=== PATIENT | female | born 1975 | race African-American/Black ===

== ENCOUNTER 2024-10-30 00:07 | Day surgery (SDC) | payer OTHER, SELFPAY ==
[2024-07-11 13:14] VITALS: BMI 26.6
--- NOTE | 2024-08-01 10:54 | SUR.PREOP ---
Called patient in regards to procedure today. Patient arrival time was 1000. Patient did not answer the phone. Message left with patient.
--- OUTSIDE RECORDS SUMMARY | 2024-08-08 03:15 | XMS_ITS | Encounter Summary ---
Author Organization [facility] Address [address] [place] [address]. [place] [address] [place] [address] Care Team Providers Care Head Chef Name Role Phone None, Provider Primary Care Provider Jaiden ble Encounter Details Date Type Department Care Team (Latest Contact Info) Description 06/29/2021 Travel Social History Tobacco Use Types Packs/Day Years Used Date Smoking Tobacco: Never Assessed Comments Unknown Sex and Gender Information Value Date Recorded Sex Assigned at Not on file Legal Sex Female 8:14 AM CDT Gender Identity Not on file Sexual Orientation Not on file COVID-19 Exposure Response Date Recorded In the last month, have you been in contact with someone who was confirmed or suspected to have Coronavirus / COVID-19? No / Unsure 06/29/2021 2:18 PM STORE CONSULTANT documented as of this encounter Plan of Treatment Not on file documented as of this encounter Visit Diagnoses Not on filedocumented in this encounter Care Teams Head Chef Relationship Specialty Start Date End Date None, ProviderMD PCP - General 06/29/21 07/24/24 documented as of this encounter
--- OUTSIDE RECORDS SUMMARY | 2024-08-08 03:15 | XMS_ITS | Clinical Summary ---
Author Organization [facility] Address [address] [place] [address]. [place] [address] [place] [address] Care Team Providers Care Safety Patrol Officer Name Role Phone Bairon Brown MD Primary Care Provider [phone] Allergies No known active allergies Medications ondansetron (ZOFRAN-ODT) 4 MG disintegrating tablet Take 1 tablet (4 mg total) by mouth every 8 (eight) hours as needed for Nausea. 12 tablet Active Encounters Date Type Department Care Team Description 07/25/2024 5:40 PM KINDERGARTEN PREP TEACHER - 07/25/2024 10:09 PM KINDERGARTEN PREP TEACHER Emergency [facility] [place] [address] Terence Pimentel MD Flu Like Symptoms Discharge Disposition: Home or Self Care (Routine Discharge) 07/25/2024 Travel from Last 3 Months Family History Medical History Relation Comments Breast Cancer Sister Relation Status Comments Sister Social History Tobacco Use Types Packs/Day Years Used Date Smoking Tobacco: Never Smokeless Tobacco: Never Tobacco Cessation:Counseling Given: Not Answered Alcohol Use Standard Drinks/Week Comments Not Currently 0 (1 standard drink = 0.6 oz pur e alcohol) Comments No Sex and Gender Information Value Date Recorded Sex Assigned at Not on file Legal Sex Female 8:14 AM CDT Gender Identity Not on file Sexual Orientation Not on file Last Filed Vital Signs Vital Sign Reading Time Taken Comments Blood Pressure 136/80 07/25/2024 10:00 PM KINDERGARTEN PREP TEACHER Pulse 79 07/25/2024 10:00 PM KINDERGARTEN PREP TEACHER Temperature 36.8 ??C (98.3 ??F) 07/25/2024 5:37 PM CS T Respiratory Rate 16 07/25/2024 10:00 PM KINDERGARTEN PREP TEACHER Oxygen Saturation 99% 07/25/2024 10:00 PM KINDERGARTEN PREP TEACHER Inhaled Oxygen Concentration - - Weight 65.4 kg (144 lb 2.9 oz) 07/25/2024 5:37 P M KINDERGARTEN PREP TEACHER Height 152.4 cm (5') 07/25/2024 5:37 PM KINDERGARTEN PREP TEACHER Body Mass Index 28.16 07/25/2024 5:37 PM KINDERGARTEN PREP TEACHER Plan of Treatment Health Maintenance Due Date Last Done Comments Cervical Cancer Screening Pap Smear (Age 30 to 64) Every 3 Years 1973 Colorectal Cancer Screening Colonoscopy (10 Years) 1973 Annual Physical 1976 Hepatitis C 1991 DTaP, Tdap and Td Vaccines (1 - Tdap) 1992 Hepatitis B Vaccines (1 of 3 - 19+ 3-dose series) 1992 Cervical Cancer Screening Pap with HPV Testing (Age 30 to 64) Every 5 Years 2003 Cervical Cancer Screening with HPV 2003 Zoster Vaccines (1 of 2) 2023 Mammogram Screening 06/29/2023 06/29/2021, 12/25/2020, 08/13/2020, Additional history exists COVID-19 Vaccine (2023- season) 2024 03/14/2021, 02/15/2021 Influenza Adult (#1) 2024 Meningococcal Vaccine Aged Out No leonor edgardo eligible based on patient's age to complete this topic Pneumococcal Vaccine: Pediatrics (0 to 5 Years) and At-Risk Patients (6 to 64 Years) Aged Out No longer eligible based on patient's age to complete this topic RSV Immunizations Under 20 Months Aged Out No longer eligible based on patient's age to complete this topic Procedures Procedure Name Priority Date/Time Associated Diagnosis Comments CT ABD+PEL WO CON STAT 07/25/2024 8:1 2 PM KINDERGARTEN PREP TEACHER HC URINALYSIS AUTO W/O MICRO STAT 07/25/2024 6:15 PM KINDERGARTEN PREP TEACHER INFLUENZA A & B STAT 07/25/2024 5:57 PM KINDERGARTEN PREP TEACHER CORONAVIRUS (COVID 19) STAT 5:57 PM KINDERGARTEN PREP TEACHER COMPREHENSIVE METABOLIC PANEL STAT 07/25/2024 5:57 PM KINDERGARTEN PREP TEACHER CBC W/DIFF AUTOMATED STAT 07/25/2024 5:57 PM KINDERGARTEN PREP TEACHER MG DIAG W KRYSTINA BILAT DIGI Routine 06/29/2021 2:46 PM KINDERGARTEN PREP TEACHER Abnormal mammogram from Last 3 Months or Most Recently Relevant to Health Maintenance Results * CT ABD+PEL WO CON (07/25/2024 8:12 PM KINDERGARTEN PREP TEACHER) Anatomical Region Laterality Modality Abdomen Computed Tomogra phy 07/25/2024 8:49 PM KINDERGARTEN PREP TEACHER Impressions 07/25/2024 8:58 PM KINDERGARTEN PREP TEACHER IMPRESSION: Possible enteritis. Referred By: ?? Interpreted By: Homar Whaley MD, 07/25/2024 8:49 PM Narrative 07/25/2024 8:58 PM KINDERGARTEN PREP TEACHER [address] [address] EXAM: CT ABD+PEL WO CON DATE: 07/25/2024 COMPARISON: None INDICATION: Body aches and diarrhea TECHNIQUE: Noncontrast imaging A dose lowering technique was used for this procedure, which may include, but is not limited to, dose reduction technique, automated exposure control, iterative reconstruction, ALARA (As Low As Reasonably Achievable), or Image Gently techniques. FINDINGS: The lungs are clear. ??Left mastectomy. There is probably mild fatty infiltration of the liver. ??Normal noncontrast appearance of the spleen, adrenal glands, and pancreas. ??Mostly contracted gallbladder. No calcifications in the kidneys. ??Poorly visualized ureters with no evidence of obstruction. ??Probable phlebolith distally in the left side of the pelvis. ??Normal urinary bladder. There is a partially calcified fibroid associated with the uterine fundus. ??This is superiorly located in the anteverted uterus and measures about 3 cm. ??Tiny calcifications are present. ??No adnexal mass. ??Small amount fluid could be physiologic. Moderate stool volume. ??Normal appendix. ??Fecal material from the hepatic flexure distally is normal density. ??The more proximal aspects of the large bowel have lower density stool. ??This can be associated with diarrhea. ??Additionally, multiple small bowel segments contain fluid. ??They are normal diameter, but unless there has been a recent large fluid ingestion, possible enteritis. ?? Multiple normal size mesenteric lymph nodes are nonspecific findings. ??Stomach is moderately distended with mixed density material. Mild lumbar dextroscoliosis. Procedure Note Homar Whaley MD - 07/25/[address] [address] EXAM: CT ABD+PEL WO CON DATE: 07/25/2024 COMPARISON: None INDICATION: Body aches and diarrhea TECHNIQUE: Noncontrast imaging A dose lowering technique was used for this procedure, which may include,but is not limited to, dose reduction technique, automated exposurecontrol, iterative reconstruction, ALARA (As Low As ReasonablyAchievable), or Image Gently techniques. FINDINGS: The lungs are clear. Left mastectomy. There is probably mild fatty infiltration of the liver. Normalnoncontrast appearance of the spleen, adrenal glands, and pancreas.Mostly contracted gallbladder. No calcifications in the kidneys. Poorly visualized ureters with noevidence of obstruction. Probable phlebolith distally in the left side ofthe pelvis. Normal urinary bladder. There is a partially calcified fibroid associated with the uterine fundus.This is superiorly located in the anteverted uterus and measures about 3cm. Tiny calcifications are present. No adnexal mass. Small amountfluid could be physiologic. Moderate stool volume. Normal appendix. Fecal material from the hepaticflexure distally is normal density. The more proximal aspects of thelarge bowel have lower density stool. This can be associated withdiarrhea. Additionally, multiple small bowel segments contain fluid.They are normal diameter, but unless there has been a recent large fluidingestion, possible enteritis. Multiple normal size mesenteric lymph nodes are nonspecific findings.Stomach is moderately distended with mixed density material. Mild lumbar dextroscoliosis. IMPRESSION: Possible enteritis. Referred By: Interpreted By: Homar Whaley MD, 07/25/2024 8:49 PM Terence Pimentel MD CT Final Result * (ABNORMAL) URINALYSIS (07/25/2024 6:15 PM KINDERGARTEN PREP TEACHER) SPECIMEN TYPE URINE CLEAN CATCH 07/25/2024 6:15 PM KINDERGARTEN PREP TEACHER [facility] COLOR (U) YELLOW 07/25/2024 7:07 PM [facility] TRANSPARENCY CLEAR 07/25/2024 7:07 PM [facility] SPECIFIC GRAVITY (U) 1.031(H) 1.001 - 1.030 07/25/2024 7:07 PM [facility] U PH 5.5 5.0 - 9.0 07/25/2024 7:07 PM [facility] LEUKOCYTES (U) NEGATIVE NEGATIVE 07/25/2024 7:07 PM [facility] NITRITES NEGATIVE NEGATIVE 07/25/2024 7:07 PM [facility] PROTEIN RANDOM (U) 20 <30 MG/DL 07/25/2024 7:07 PM [facility] GLUCOSE (U) NORMAL NORMAL MG/DL 07/25/2024 7:07 PM [facility] KETONES MG/DL (U) 10(A) NEGATIVE MG/DL 07/25/2024 7:07 PM [facility] UROBILINOGEN NORMAL NORMAL MG/DL 07/25/2024 7:07 PM [facility] BILIRUBIN (U) NEGATIVE NEGATIVE MG/DL 07/25/2024 7:07 PM KINDERGARTEN PREP TEACHER [facility] BLOOD (U) 1+(A) NEGATIVE 07/25/2024 7:07 PM KINDERGARTEN PREP TEACHER [facility] MUCUS FEW /LPF 07/25/2024 7:07 PM KINDERGARTEN PREP TEACHER [facility] WBC/HPF 2 <6 /HPF 07/25/2024 7:07 PM KINDERGARTEN PREP TEACHER [facility] RBC/HPF 16(H) <6 /HPF 07/25/2024 7:07 PM KINDERGARTEN PREP TEACHER [facility] SQUAMOUS EPITHELIALS RARE /HPF 07/25/2024 7:07 PM KINDERGARTEN PREP TEACHER [facility] URINE SPECIMEN OBTAINED BY CLEAN CATCH PROCEDURE / Unknown 07/25/2024 6:15 PM KINDERGARTEN PREP TEACHER Terence Pimentel MD URINE ORDERABLES Final Result [facility] [address] [place] [address], [place] [phone] * CORONAVIRUS (COVID 19) (07/25/2024 5:57 PM KINDERGARTEN PREP TEACHER) CORONAVIRUS SARS COV 2 RNA NEGATIVE NEGATIVE 07/25/2024 6:43 PM KINDERGARTEN PREP TEACHER [facility] Comment: NEGATIVE RESULTS DO NOT RULE OUT COVID 19 AND SHOULD NOT BE USED THE SOLE BASIS FOR TREATMENT OR PATIENT MANAGEMENT DECISIONS, INCLUDING INFECTION CONTROL DECISIONS. NEGATIVE RESULTS SHOULD BE CONSIDERED IN THE CONTEXT OF A PATIENT'S RECENT EXPOSURES, HISTORY AND THE PRESENCE OF CLINICAL SIGNS AND SYMPTOMS CONSISTENT WITH COVID 19. THE ID NOW COVID-19 2.0 TEST HAS BEEN AUTHORIZED BY THE FDA UNDER EAU FOR USE BY AUTHORIZED LABORATORIES. PERFORMED BY NUCLEIC ACID AMPLIFICATION FOR MOLECULAR QUALITATIVE DETECTION OF SARS-COV-2. SPECIMEN TYPE NASAL 07/25/2024 5:53 PM KINDERGARTEN PREP TEACHER [facility] NASAL STRUCTURE / Unknown 07/25/2024 5:57 PM KINDERGARTEN PREP TEACHER Janet ROMEO MICROBIOLOGY - GENERAL ORDERAB LES Final Result [facility] [address] [place] [address], [place] [phone] * INFLUENZA A & B (07/25/2024 5:57 PM KINDERGARTEN PREP TEACHER) SPECIMEN TYPE SWAB 07/25/2024 6:17 PM KINDERGARTEN PREP TEACHER [facility] INFLUENZA A NEGATIVE NEGATIVE 07/25/2024 6:44 PM KINDERGARTEN PREP TEACHER [facility] INFLUENZA B NEGATIVE NEGATIVE 07/25/2024 6:44 PM KINDERGARTEN PREP TEACHER [facility] Comment: Interpretation: Negative for Influenza A and B. A negative result does not exclude influenza virus infection. If influenza is circulating in your community, a diagnosis of influenza should be considered based on a patient's clinical presentation and empiric antiviral treatment should be considered, if indicated. If more conclusive testing is needed for hospitalized inpatients, follow-up confirmatory testing with RT-PCR requires a separate order. NASAL STRUCTURE / Unknown 07/25/2024 5:57 PM KINDERGARTEN PREP TEACHER Janet ROMEO MICROBIOLOGY - GENERAL ORDERAB LES Final Result Performing Organization Address [facility]/ZIP Co de Phone Number [facility] [address] [place] [address], [place] [phone] * (ABNORMAL) COMPREHENSIVE METABOLIC PANEL (07/25/2024 5:57 PM KINDERGARTEN PREP TEACHER) GLUCOSE 99 70 - 99 MG/DL 07/25/2024 6:36 PM KINDERGARTEN PREP TEACHER [facility] BUN 11 7 - 18 MG/DL 07/25/2024 6:36 PM KINDERGARTEN PREP TEACHER [facility] CREATININE S/P/B 0.80 0.55 - 1.02 MG/DL 07/25/2024 6:36 PM [facility] SODIUM S/P/B 137 136 - 145 MMOL/L 07/25/2024 6:36 PM [facility] POTASSIUM S/P/B 3.5 3.5 - 5.1 MMOL/L 07/25/2024 6:36 PM [facility] CHLORIDE S/P/B 108 97 - 115 MMOL/L 07/25/2024 6:36 PM [facility] CO2 24.8 21 - 32 MMOL/L 07/25/2024 6:36 PM [facility] CALCIUM S/P/B 9.3 8.5 - 10.1 MG/DL 07/25/2024 6:36 PM [facility] BILIRUBIN TOTAL S/P/B 0.6 0.2 - 1.2 MG/DL 07/25/2024 6:36 PM [facility] Comment: THIS ASSAY IS NOT RECOMMENDED FOR PATIENTS UNDERGOING TREATMENT WITH ELTROMBOPAG DUE TO THE POTENTIAL FOR FALSELY ELEVATED RESULTS. TOTAL PROTEIN S/P/B 8.1 6.4 - 8.2 G/DL 07/25/2024 6:36 PM [facility] ALBUMIN S/P/B 3.7 3.4 - 5.0 G/DL 07/25/2024 6:36 PM [facility] AST 15 15 - 37 U/L 07/25/2024 6:36 PM [facility] ALT 23 14 - 55 U/L 07/25/2024 6:36 PM [facility] ALKALINE PHOSPHATASE S/P/B 107 50 - 136 U/L 07/25/2024 6:36 PM [facility] ANION GAP 4.2 2 - 10 MMOL/L 07/25/2024 6:36 PM [facility] BUN CREATININE RATIO 13.8 6 - 26 07/25/2024 6:36 PM [facility] A/G RATIO 0.8(L) 1.0 - 2.0 RATIO 07/25/2024 6:36 PM [facility] GFR ESTIMATE 89(L) >90 ML/MIN/1.7 3 M2 07/25/2024 6:36 PM [facility] Comment: NOTE: eGFR is not calculated for patients <18 years of age or gender unknown. This is an estimated GFR calculation using the new CKD EPI creatinine equation without race and so does not require a correction factor for race. This estimated GFR should not be used for calculating drug doses. 07/25/2024 5:57 PM KINDERGARTEN PREP TEACHER Janet ROMEO LABORATORY Final Result [facility] [address] [place] [address], [place] [phone] * (ABNORMAL) CBC W/DIFF AUTOMATED (07/25/2024 5:57 PM KINDERGARTEN PREP TEACHER) WBC 5.30 4.5 - 11.0 x10'3/uL 07/25/2024 6:27 PM [facility] RBC 5.86(H) 4.20 - 5.40 x10'6/uL 07/25/2024 6:27 PM [facility] HGB 12.7 12.0 - 16.0 G/DL 07/25/2024 6:27 PM [facility] HCT 41.6 38.0 - 48.0 % 07/25/2024 6:27 PM [facility] MCV 71.0(L) 81.0 - 99.0 FL 07/25/2024 6:27 PM [facility] MCH 21.7(L) 27.0 - 31.0 PG 07/25/2024 6:27 PM [facility] MCHC 30.5(L) 32.0 - 36.0 G/DL 07/25/2024 6:27 PM [facility] RDW 14.5 11.5 - 14.5 % 07/25/2024 6:27 PM [facility] PLT 307 130 - 400 x10'3/uL 07/25/2024 6:27 PM [facility] MPV 9.0(L) 9.3 - 12.2 FL 07/25/2024 6:27 PM [facility] DIFFERENTIAL TYPE AUTOMATED DIFFERENTIAL 07/25/2024 6:41 PM [facility] NEUTROPHILS % 79.0 % 07/25/2024 6:41 PM [facility] LYMPHOCYTES % 14.0 % 07/25/2024 6:41 PM [facility] MONOCYTES % 6.4 % 07/25/2024 6:41 PM [facility] EOSINOPHILS 0.2 % 07/25/2024 6:41 PM [facility] BASOPHILS 0.2 % 07/25/2024 6:41 PM [facility] IMMATURE GRANS % 0.2 % 07/25/19 6:41 PM [facility] ABS. NEUTROPHILS 4.19 1.80 - 7.70 x10'3/uL 07/25/2024 6:41 PM [facility] ABS. LYMPHOCYTES 0.74(L) 1.00 - 4.80 x10'3/uL 07/25/2024 6:41 PM [facility] ABS. MONOCYTES 0.34 0.24 - 0.86 x10'3/uL 07/25/2024 6:41 PM KINDERGARTEN PREP TEACHER [facility] ABS. EOSINOPHILS 0.01(L) 0.04 - 0.36 x10'3/uL 07/25/2024 6:41 PM KINDERGARTEN PREP TEACHER [facility] ABS. BASOPHILS 0.01 0.01 - 0.08 x10'3/uL 07/25/2024 6:41 PM KINDERGARTEN PREP TEACHER [facility] ABS. IMMATURE GRANULOCYTES 0.01 0.00 - 0.49 x10'3/uL 07/25/2024 6:41 PM KINDERGARTEN PREP TEACHER [facility] RBC MORPHOLOGY SLIDE REVIEWED 2024 6:41 PM KINDERGARTEN PREP TEACHER [facility] HYPOCHROMASIA 1+ 07/25/2024 6:41 PM KINDERGARTEN PREP TEACHER [facility] MICRO 1+ 07/25/2024 6:41 PM [facility] PLT EST. ADEQUATE 07/25/2024 6:41 PM [facility] 07/25/2024 5:57 PM KINDERGARTEN PREP TEACHER Janet ROMEO LABORATORY Final Result [facility] [address] [place] [address], [place] [phone] * MG DIAG W KRYSTINA BILAT DIGI (06/29/2021 2:46 PM KINDERGARTEN PREP TEACHER) Anatomical Region Laterality Modality Breast Bilateral Mammography 06/29/2021 2:54 PM KINDERGARTEN PREP TEACHER Impressions 06/29/2021 2:58 PM KINDERGARTEN PREP TEACHER ===== IMPRESSION: ===== 1. ??Evidence of prior biopsy with no findings in either breast to suggest malignancy Assessment: ACR BI-RADS 2 - BENIGN FINDING(S) Recommendation: 1:Routine Screening Bilateral Comments: Continued annual bilateral screening mammography recommended. Additional bilateral 6 month follow-ups of the breasts by MRI recommended previously. Ordered By: ESTUARDO E LOETHEN Interpreted By: Terence Orellana MD, 06/29/2021 2:54 PM Narrative 06/29/2021 2:58 PM KINDERGARTEN PREP TEACHER Examination: Digital bilateral diagnostic mammogram with 3-D tomography Exam Date/Time: 06/29/2021 2:31 PM Reason For Exam: ??F/U ? 3 month follow-up for benign biopsy in the right breast. No personal history of breast cancer. Breast cancer in a sister at age 48. No current complaints. Comparison: Mammograms from 12/25/2020 08/13/2020 01/16/2020 01/16/2019 Technique: Digital diagnostic mammography of both breasts was performed in addition to 3-D Tomosynthesis technique. This study was read with the assistance of a computer-aided detection system. Tissue density: The breast tissue is heterogeneously dense, which may obscure small masses. Findings: ??Area of biopsy in the medial right breast does not have a clip as noted on prior post biopsy mammogram. Additional prior biopsy clip is seen in the right breast in stable position from prior studies. Interval resolution of biopsy changes in the medial right breast. Overall parenchymal pattern of bilateral breast otherwise stable from the prior studies. Benign axillary lymph nodes. No new focal asymmetry, dominant mass lesion, area of skin thickening, or cluster of suspicious appearing calcifications in either breast to suggest malignancy. Estuardo Hernandez MD MAMMO Final Result from Last 3 Months or Most Recently Relevant to Health Maintenance [place] [address] [address] Care Teams Safety Patrol Officer Relationship Specialty Start Date End Date Bairon Brown MD [facility] [address] [facility] [address] [place] [phone] PCP - General UNKNOWN PHYSICIAN SPECIALTY 07/25/24
--- OUTSIDE RECORDS SUMMARY | 2024-08-08 03:15 | XMS_ITS | Encounter Summary ---
Author Organization [facility] Address [address] [place] [address]. [place] [address] [place] [address] Care Team Providers Care Staff Counsel Name Role Phone Abi Baptiste MD Primary Care Provider Unavail able Encounter Details Date Type Department Care Team (Latest Contact Info) Description 12/25/2020 12:48 PM CDT - 12/25/2020 11:59 PM CDT Hospital Encounter [facility] Mammography [address] [place] [address] Omaira Vilchis MD [address] [place] [address] [phone] Discharge Disposition: Home or Self Care (Routine Discharge) Social History Tobacco Use Types Packs/Day Years [...] have Coronavirus / COVID-19? No / Unsure 12/25/2020 12:47 PM CDT documented as of this encounter Plan of Treatment Not on file documented as of this encounter Procedures Procedure Name Priority Date/Time Associated Diagnosis Comments MG DIAGNOSTIC RT DIGI Routine 12/25/2020 3:01 PM CDT Breast mass, right PATHOLOGY Routine 12/25/2020 12:00 AM CDT Breast mass documented in this encounter Results * Pathology (12/25/2020 12:00 AM CDT) PATHOLOGY ?[facility] ? [address] ? [place], [place] ??[address] ? [id number] ? Department of Pathology ? Pathology Report ? SURGICAL FINAL REPORT Patient Name: AILEEN FROST ? : 1975 (Age: 45) ?Location: [facility] Gender: F ?Collected Date: 12/25/2020 Med Rec #: [id number] ?Date Received: 12/25/2020 Date Reported: 12/26/2020 Provider: OMAIRA VILCHIS MD ?ABI BAPTISTE MD Specimen(s) Right breast MRI biopsy buckle clip 1442 hrs Final Pathologic Diagnosis BREAST, RIGHT, MRI-GUIDED BIOPSY: ? MICROCYSTS WITH APOCRINE METAPLASIA ? STROMAL FIBROSIS ? FOCAL USUAL DUCTAL HYPERPLASIA ? NO ATYPICAL HYPERPLASIA OR MALIGNANCY Electronically Signed Out ? MARIANO THOMPSON MD Pathologist SMO:pb Microscopic Description: Microscopic examination substantiates the above diagnosis. Clinical History Gross hematuria Gross Description Received is a single formalin-filled container labeled with the patient's name (Aileen Frost), date of , 1975, collected 12/25/2020 at 1442, and additionally labeled right breast MRI biopsy buckle clip. ??The specimen consists of multiple previously fragmented white-yellow probable core needle biopsies admixed with hemorrhagic tissue, with aggregate dimensions of 3.0 x 2.0 x 0.6 cm. ??The specimen is submitted in toto in cassettes 1-5. :pb Billing Fee Code(s): 73892 [facility] 12/25/2020 12/25/2020 3:3 4 PM CDT Comment:RIGHT BREAST MRI BIO PSY BUCKLE CLIP 1442 HRS us Omaira Vilchis MD PATHOLOGY/CYTOLOGY ORDERABL ES Final Result [facility] [address] [place] [address], [place] [phone] documented in this encounter Visit Diagnoses Diagnosis Breast mass- Primary Lump or mass in breast documented in this encounter Administered Medications Inactive Administered Medications - up to 3 most recent administrations Medication Order MAR Action Action Date Dose Rate Site lidocaine-EPINEPHrine 1 %[id number] injection 20 mL 20 mL, Intradermal, Once, 1 dose, On [facility] 12/25/20 at 1530 Given by Other 12/25/2020 1:55 PM CDT 20 mLs Right Breast sodium chloride 0.9 % irrigation 250 mL 250 mL, Irrigation, Continuous, Starting on [place] 12/25/20 at 1530, Until 12/27/20 at 0250 New Bag 12/25/2020 1:55 PM CDT 250 mLs Right Breast documented in this encounter Care Teams Staff Counsel Relationship Specialty Start Date End Date Abi Baptiste MD PCP - General OBGYN 06/22/19 02/05/21 documented as of this encounter
--- OUTSIDE RECORDS SUMMARY | 2024-08-08 03:15 | XMS_ITS | Encounter Summary ---
Author Organization [facility] Address [address] [place] [address]. [place] [address] [place] [address] Care Team Providers Care Sales Solutions Representative Name Role Phone Natalie Starks MD Primary Care Provider Unavail able Reason for Referral * Imaging (Routine) - Closed Specialty Diagnoses / Procedures Referred By Patricia oliver Referred To Contact RADIOLOGY Diagnoses Abnormal mammogram Procedures US BREAST RT BIRAD [facility] [place] [address] Phone: tel: Referral ID Status Reason Start Date Expiration Date Visits Re quested Visits Authorized [id number] Closed 07/16/2019 08/14/2020 1 1 Encounter Details Date Type Department Care Team (Latest Contact Info) Description 01/16/2020 9:19 AM CDT - 01/16/2020 11:59 PM CDT Hospital Encounter [facility] Mammography [place], [place] [id number] Natalie Starks MD Discharge Disposition: Home or Self Care (Routine [...] have Coronavirus / COVID-19? No / Unsure 01/16/2020 9:17 AM CDT documented as of this encounter Plan of Treatment Not on file documented as of this encounter Procedures Procedure Name Priority Date/Time Associated Diagnosis Comments US BREAST RT BIRAD LTD Routine 01/16/2020 11:03 AM CDT Abnormal mammogram MG EDIS DAMON DIGI Routine 01/16/2020 10:08 AM CDT Abnormal mammogram documented in this encounter Results * US BREAST RT Territorial PrescienceAD LTD (01/16/2020 11:03 AM CDT) Anatomical Region Laterality Modality Breast Right Ultrasound 01/16/2020 11:2 9 AM CDT Impressions 01/16/2020 11:32 AM CDT =====IMPRESSION:===== Multiloculated cystic lesion of the right breast seen on ultrasound only. Subtle increase in mural nodule is suspected. ASSESSMENT: ACR BI-RADS CATEGORY 4 - SUSPICIOUS FINDING(S). ? SUBCATEGORY 4A - LOW SUSPICION FOR MALIGNANCY ? (between 3% to 10% likelihood) RECOMMENDATION: 1: Surgical consultation ??right COMMENTS: ? Narrative 01/16/2020 11:32 AM CDT EXAMINATION: Digital bilateral diagnostic mammogram with 3-D tomography and right breast ultrasound [id number] EXAM DATE/TIME: 01/16/2020 9:47 AM REASON FOR EXAM: ??Abnormal mammogram ? COMPARISON: 01/16/2019 TECHNIQUE: Digital diagnostic mammography of both breasts was performed in addition to 3-D Tomosynthesis technique. This study was read with the assistance of a computer-aided detection system. Right breast ultrasound also performed. TISSUE DENSITY: The breast tissue is extremely dense. FINDINGS: The dense tissue may obscure some lesions mammographically. Mammogram shows no suspicious mass or suspicious cluster microcalcifications seen. Correlation with free hand ultrasound shows previous finding is again identified. This is in the right breast and located at the 12:00 position, 4 cm from the nipple. This is multilobulated. This measures 0.57 x 0.93 x 0.55 cm. This is predominantly cystic although some mural thickening is seen. Lobulated thickened septa is noted. This may be slightly increased in prominence from prior exam. Natalie Starks MD ULTRASOUND Final Result documented in this encounter Visit Diagnoses Diagnosis Abnormal mammogram Abnormal mammogram, unspecified documented in this encounter Care Teams Sales Solutions Representative Relationship Specialty Start Date End Date Natalie Starks MD PCP - General OBGYN 06/22/19 02/05/21 documented as of this encounter
--- OUTSIDE RECORDS SUMMARY | 2024-08-08 03:15 | XMS_ITS | Encounter Summary ---
Author Organization [facility] Address [address] [place] [address]. [place] [address] [place] [address] Care Team Providers Care Technical Lead Name Role Phone Natalie Starks MD Primary Care Provider Unavail able Reason for Referral * Imaging (Routine) - Closed Specialty Diagnoses / Procedures Referred By Patricia oliver Referred To Contact RADIOLOGY Diagnoses Breast mass, right Procedures MRI BREAST CORE BX RT BIRAD MRI BREAST TRAV WWO CON Omaira Garcia MD [address] [place] [address] Phone: tel: fax: Referral ID Status Reason Start Date Expiration Date Visits Re quested Visits Authorized [id number] Closed 11/18/2020 12/18/2021 1 1 Reason for Visit * Imaging (Routine) - Closed Specialty Diagnoses / Procedures Referred By Patricia oliver Referred To Contact RADIOLOGY Diagnoses Breast mass, right Procedures MRI BREAST CORE BX RT BIRAD MRI BREAST TRAV WWO CON Omaira Garcia MD [address] [place] [id number] Phone: tel: fax: Referral ID Status Reason Start Date Expiration Date Visits Re quested Visits Authorized [id number] Closed 11/18/2020 12/18/2021 1 1 Encounter Details Date Type Department Care Team (Latest Contact Info) Description 12/25/2020 12:48 PM CDT - 12/25/2020 11:59 PM CDT Hospital Encounter [facility] MRI [address] [place] [address] Omaira Vilchis MD [address] [place] [phone] Discharge Disposition: Home or Self Care (Routine [...] Procedure Name Priority Date/Time Associated Diagnosis Comments MRI BREAST CORE BX RT BIRAD Routine 12/25/2020 2:56 PM CDT Breast mass, right documented in this encounter Results * MRI BREAST CORE BX RT BIRAD (12/25/2020 2:56 PM CDT) Anatomical Region Laterality Modality Breast Right Magnetic Resonan ce RIGHT BREAST STRUCTURE / Unknown 12/25/2020 4:27 PM CDT Addenda Addendum by Jensen Colon MD on 12/26/2020 4:46 PM CDT Addendum: Pathology results: Specimen(s) Right breast MRI biopsy Final Pathologic Diagnosis BREAST, RIGHT, MRI-GUIDED BIOPSY: ? ? ?MICROCYSTS WITH APOCRINE METAPLASIA ? ? ?STROMAL FIBROSIS ? ? ?FOCAL USUAL DUCTAL HYPERPLASIA ? ? ?NO ATYPICAL HYPERPLASIA OR MALIGNANCY Pathology results are concordant. ASSESSMENT: BI-RADS Category 2. Benign biopsy findings. Recommendation: 6 month follow-up breast MRI with contrast. Referred By: OMAIRA VILCHIS Interpreted By: Jensen Colon MD, 12/26/2020 4:36 PM Impressions 12/25/2020 4:49 PM CDT IMPRESSION: MRI guided biopsy of the focus of enhancement in the medial right breast. Recommendation: Recommendation pending pathology results. 1 Assessment: Procedural MRI. Assessment pending. Referred By: OMAIRA VILCHIS Interpreted By: Jensen Colon MD, 12/25/2020 4:27 PM Narrative 12/25/2020 4:49 PM CDT Examination: MRI breast right with with contrast and MRI guided biopsy. Clinical history: Focus of suspicious enhancement in the medial right breast. (MRI November 04, 2020) Comparison: MRI November 04, 2020 MRI technique: ??3-D fat-suppressed axial and sagittal T1 images. With subsequent intravenous injection of 0.1 mmol/kilogram gadolinium contrast, the axial T1 gradient-echo fat-suppressed sequenceThe precontrast axial T1 sequence was then electronically subtracted from the post contrast axial T1 sequences in order to improve background suppression. Procedure: My hands were washed prior to the procedure. After the risks, benefits and alternatives of the procedure were discussed with the patient the patient agreed. The patient was subsequently positioned in the breast MRI coil and advanced into the MRI scanner. Postcontrast sequences of the breast were performed. The prior area of enhancement within the medial mid right breast was reidentified. A timeout was performed. Subsequently the skin was cleansed with iodine swabs x3. Approximately 3 mL of lidocaine 1% were utilized for local anesthetic. Deeper administration of 3 mL lidocaine with 1:100,000 epinephrine were utilized for deeper anesthesia and hemostasis. The small neck was made and the patient's skin. The introducer and trocar needle was then advanced into the breast. An additional scan was performed. The obturator was noted to be inferior to the location of the focus of enhancement. Subsequent repositioning was performed. This area was cleansed with iodine swabs x3. 3 mL of lidocaine 1% were utilized for local anesthetic. Deeper anesthesia with 3 mL lidocaine with epinephrine was administered. A deepak was made and the patient's skin. The introducer with trocar needle was then advanced into the breast. Repeat scan was performed. Adequate positioning of the obturator was identified. Subsequently the 9 gauge biopsy needle was advanced after the obturator was withdrawn. 9 core biopsies in the cephalad region were performed along with 6 core biopsies about the clock face at even intervals. Postprocedure scan was performed. Hematoma was identified. Subsequently a clip was placed. There is postprocedural bleeding the occurred. Compression was held for approximately 5 minutes. Patient was sent to mammography for mammographic verification of clip placement. Clip was not identified on the mammogram. This may been due to the postprocedural bleeding. Overall the patient tolerated the procedure well. Procedure Note Jensen Colon MD - 12/25/2020 Examination: MRI breast right with with contrast and MRI guided biopsy. Clinical history: Focus of suspicious enhancement in the medial rightbreast. (MRI November 04, 2020) Comparison: MRI November 04, 2020 MRI technique: 3-D fat-suppressed axial and sagittal T1 images. Withsubsequent intravenous injection of 0.1 mmol/kilogram gadolinium contrast,the axial T1 gradient-echo fat-suppressed sequenceThe precontrast axial [id number] was then electronically subtracted from the post contrast axialT1 sequences in order to improve background suppression. Procedure: My hands were washed prior to the procedure. After the risks, benefits and alternatives of the procedure were discussedwith the patient the patient agreed. The patient was subsequentlypositioned in the breast MRI coil and advanced into the MRI scanner.Postcontrast sequences of the breast were performed. The prior area ofenhancement within the medial mid right breast was reidentified. A timeoutwas performed. Subsequently the skin was cleansed with iodine swabs x3. Approximately 3mL of lidocaine 1% were utilized for local anesthetic. Deeperadministration of 3 mL lidocaine with 1:100,000 epinephrine were utilizedfor deeper anesthesia and hemostasis. The small neck was made and the patient's skin. The introducer and trocarneedle was then advanced into the breast. An additional scan wasperformed. The obturator was noted to be inferior to the location of thefocus of enhancement. Subsequent repositioning was performed. This areawas cleansed with iodine swabs x3. 3 mL of lidocaine 1% were utilized forlocal anesthetic. Deeper anesthesia with 3 mL lidocaine with epinephrinewas administered. A deepak was made and the patient's skin. The introducerwith trocar needle was then advanced into the breast. Repeat scan wasperformed. Adequate positioning of the obturator was identified.Subsequently the 9 gauge biopsy needle was advanced after the obturatorwas withdrawn. 9 core biopsies in the cephalad region were performed alongwith 6 core biopsies about the clock face at even intervals. Postprocedure scan was performed. Hematoma was identified. Subsequently a clip was placed. There is postprocedural bleeding the occurred. Compression was held forapproximately 5 minutes. Patient was sent to mammography for mammographic verification of clipplacement. Clip was not identified on the mammogram. This may been due to thepostprocedural bleeding. Overall the patient tolerated the procedure well. IMPRESSION: MRI guided biopsy of the focus of enhancement in the medial rightbreast. Recommendation: Recommendation pending pathology results. 1 Assessment: Procedural MRI. Assessment pending. Referred By: OMAIRA VILCHIS Interpreted By: Jensen Colon MD, 12/25/2020 4:27 PM us Omaira Vilchis MD MRI Edited Resu lt - Final documented in this encounter Visit Diagnoses Diagnosis Breast mass, right Lump or mass in breast documented in this encounter Administered Medications Inactive Administered Medications - up to 3 most recent administrations Medication Order MAR Action Action Date Dose Rate Site gadoterate meglumine (DOTAREM) 7.5 MMOL/15ML injection 12 mL 12 mL, Intravenous, IMG once as needed, Contrast, 1 dose, Starting on Alma 12/25/20 at 1506, Until Al[place] 12/25/20 at 1506 Given 12/25/2020 3:06 PM CDT 12 mLs documented in this encounter Care Teams Technical Lead Relationship Specialty Start Date End Date Natalie Starks MD PCP - General OBGYN 06/22/19 02/05/21 documented as of this encounter
--- OUTSIDE RECORDS SUMMARY | 2024-08-08 03:15 | XMS_ITS | Encounter Summary ---
Author Organization [facility] Address [address] [place] [address]. [place] [address] [place] [address] Care Team Providers Care Veterinary Microbiologist Name Role Phone Natalie Starks MD Primary Care Provider Unavail able Encounter Details Date Type Department Care Team (Latest Contact Info) Description 08/13/2020 Travel Social History Tobacco Use Types Packs/Day [...] have Coronavirus / COVID-19? No / Unsure 08/13/2020 1:45 PM COUNTER INTELLIGENCE documented as of this encounter Plan of Treatment Not on file documented as of this encounter Visit Diagnoses Not on filedocumented in this encounter Care Teams Veterinary Microbiologist Relationship Specialty Start Date End Date Natalie Starks MD PCP - General OBGYN 06/22/19 02/05/21 documented as of this encounter
--- OUTSIDE RECORDS SUMMARY | 2024-08-08 03:15 | XMS_ITS | Encounter Summary ---
Author Organization [facility] Address [address] [place] [address]. [place] [address] [place] [address] Care Team Providers Care Sewing Machine Assembler Name Role Phone None, Provider Primary Care Provider Jaiden lehman Encounter Details Date Type Department Care Team (Latest Contact Info) Description 06/29/2021 2:26 PM FENCE MANUFACTURE SUPERVISOR - 06/29/2021 11:59 PM FENCE MANUFACTURE SUPERVISOR Hospital Encounter [facility] Mammography [address] [place], [place] [address] Estuardo Conti MD [facility] [address] [place] [phone] Discharge Disposition: Home or Self Care (Routine [...] COVID-19? No / Unsure 06/29/2021 2:18 PM FENCE MANUFACTURE SUPERVISOR documented as of this encounter Plan of Treatment Not on file documented as of this encounter Procedures Procedure Name Priority Date/Time Associated Diagnosis Comments MG DIAG W KRYSTINA BILAT DIGI Routine 06/29/2021 2:46 PM FENCE MANUFACTURE SUPERVISOR Abnormal mammogram documented in this encounter Results * MG DIAG W KRYSTINA BILAT DIGI (06/29/2021 2:46 PM FENCE MANUFACTURE SUPERVISOR) Anatomical Region Laterality Modality Breast Bilateral Mammography 06/29/2021 2:54 PM FENCE MANUFACTURE SUPERVISOR Impressions 06/29/2021 2:58 PM FENCE MANUFACTURE SUPERVISOR ===== IMPRESSION: ===== 1. ??Evidence of prior biopsy with no findings in either breast to suggest malignancy Assessment: ACR BI-RADS 2 - BENIGN FINDING(S) Recommendation: 1:Routine Screening Bilateral Comments: Continued annual bilateral screening mammography recommended. Additional bilateral 6 month follow-ups of the breasts by MRI recommended previously. Ordered By: ESTUARDO CONTI Interpreted By: Terence Orellana MD, 06/29/2021 2:54 PM Narrative 06/29/2021 2:58 PM FENCE MANUFACTURE SUPERVISOR Examination: Digital bilateral diagnostic mammogram with 3-D [...] calcifications in either breast to suggest malignancy. us Estuardo Conti MD MAMMO Final Result documented in this encounter Visit Diagnoses Not on filedocumented in this encounter Care Teams Sewing Machine Assembler Relationship Specialty Start Date End Date None, Provider, PCP - General 06/29/21 07/24/24 documented as of this encounter
--- OUTSIDE RECORDS SUMMARY | 2024-08-08 03:15 | XMS_ITS | Encounter Summary ---
Author Organization [facility] Address [address] [place] [address]. [place] [address] [place] [address] Care Team Providers Care Echo Tech Name Role Phone Natalie Starks MD Primary Care Provider Unavail able Encounter Details Date Type Department Care Team (Latest Contact Info) Description 01/16/2020 Travel Social History Tobacco Use Types Packs/Day [...] on filedocumented in this encounter Care Teams Echo Tech Relationship Specialty Start Date End Date Natalie Starks MD PCP - General OBGYN 06/22/19 02/05/21 documented as of this encounter
--- OUTSIDE RECORDS SUMMARY | 2024-08-08 03:15 | XMS_ITS | Encounter Summary ---
Author Organization [facility] Address [address] [place] [address]. [place] [address] [place] [address] Care Team Providers Care Steamship Agent Name Role Phone Natalie Starks MD Primary Care Provider Unavail able Encounter Details Date Type Department Care Team (Latest Contact Info) Description 03/19/2020 Travel Social History Tobacco Use Types Packs/Day [...] have Coronavirus / COVID-19? No / Unsure 03/19/2020 8:31 AM CDT documented as of this encounter Plan of Treatment Not on file documented as of this encounter Visit Diagnoses Not on filedocumented in this encounter Care Teams Steamship Agent Relationship Specialty Start Date End Date Natalie Starks MD PCP - General OBGYN 06/22/19 02/05/21 documented as of this encounter
--- OUTSIDE RECORDS SUMMARY | 2024-08-08 03:15 | XMS_ITS | Encounter Summary ---
Author Organization [facility] Address [address] [place] [address]. [place] [address] [place] [address] Care Team Providers Care Wordpress Developer Name Role Phone Natalie Starks MD Primary Care Provider Unavail able Encounter Details Date Type Department Care Team (Latest Contact Info) Description 12/25/2020 Travel Social History Tobacco Use Types Packs/Day [...] on filedocumented in this encounter Care Teams Wordpress Developer Relationship Specialty Start Date End Date Natalie Starks MD PCP - General OBGYN 06/22/19 02/05/21 documented as of this encounter
--- OUTSIDE RECORDS SUMMARY | 2024-08-08 03:15 | XMS_ITS | Encounter Summary ---
Author Organization [facility] Address [address] [place] [address]. [place] [address] [place] [address] Care Team Providers Care Shaker Screen Operator Name Role Phone Natalie Starks MD Primary Care Provider Unavail able Encounter Details Date Type Department Care Team (Latest Contact Info) Description 01/24/2020 Travel Social History Tobacco Use Types Packs/Day [...] have Coronavirus / COVID-19? No / Unsure 01/24/2020 1:13 PM CDT documented as of this encounter Plan of Treatment Not on file documented as of this encounter Visit Diagnoses Not on filedocumented in this encounter Care Teams Shaker Screen Operator Relationship Specialty Start Date End Date Natalie Starks MD PCP - General OBGYN 06/22/19 02/05/21 documented as of this encounter
--- OUTSIDE RECORDS SUMMARY | 2024-08-08 03:15 | XMS_ITS | Encounter Summary ---
Author Organization [facility] Address [address] [place] [address]. [place] [address] [place] [address] Care Team Providers Care Umbrella Tipper Hand Name Role Phone Natalie Starks MD Primary Care Provider Unavail able Reason for Referral * Imaging (Routine) - Closed Specialty Diagnoses / Procedures Referred By Contac t Referred To Contact RADIOLOGY Diagnoses Breast mass, right Procedures US GD BREAST BX RT Omaira Garcia MD [address] [place] [address] Phone: tel: fax: [place] [address] Phone: tel: Referral ID Status Reason Start Date Expiration Date Visits Re quested Visits Authorized [id number] Closed 01/23/2020 02/21/2021 1 1 Encounter Details Date Type Department Care Team (Latest Contact Info) Description 01/24/2020 1:14 PM CDT - 01/24/2020 11:59 PM [place] [address] Omaira Vilchis MD [address] [place] [address] Discharge Disposition: Home or Self Care (Routine [...] PM CDT documented as of this encounter H&P Notes * Omaira Vilchis MD - 01/24/2020 12:00 AM CDT CHIEF COMPLAINT: Right breast mass. HISTORY OF PRESENT ILLNESS: This is a 44-year-old female with a palpable mass of the right breastat the 12 o'clock position for over 1 year. She does not believe that it has changed. Her sister was diagnosed with breast cancer within the last year and she is very nervous about this. Her imaging demonstrates a subcentimeter lesion in this area, although I am not certain that the lesion seen on ultrasound is responsible for what she is feeling. PAST MEDICAL HISTORY: No chronic medical diseases. MEDICATIONS: Iron, Multivitamin, and Potassium. ALLERGIES: NONE. HORMONAL HISTORY: Her estimated lifetime risk is calculated at 26.4%. She has pertinent family history for her sister being diagnosed with breast cancer at the age of 47. The patient herself does notand has not used any hormone therapy. She underwent menarche at age 11 or 12. She was aged 20 at her first and has 3 children. PHYSICAL EXAMINATION: Well-appearing female in no distress, alert, and oriented. No cervical, supraclavicular, or axillary adenopathy. Left breast is within normal limits. Right breast demonstrates an ill-defined area of firmness at the 12 o'clock position, approximately 4 cm from the nipple. Thereis no nipple discharge. There is no nipple inversion. IMAGING: Bilateral mammogram demonstrates extremely dense breasts bilaterally. Right breast ultrasound at the 12 o'clock position 4 cm from the nipple demonstrates a multilobulated 0.93 cm complex cystic mass, BI-RADS 4A. ASSESSMENT: A 44-year-old female with an elevated lifetime risk over 20% with a complex cystic lesion seen on her ultrasound. I am not assured that this represents what she herself is feeling. I haverecommended a bilateral breast MRI as well as genetic testing and she is going to think about both of those things and whether or not she wants to proceed with that. We did discuss proceeding with needle biopsy of the identified lesion on the ultrasound and we discussed the risks of bleeding, infection, scarring, insufficient tissue sampling, need for additional biopsy or surgery and she wished to proceed. PLAN: Ultrasound-guided needle biopsy of right breast mass 12 o'clock. #[id number] /[id number] documented in this encounter OR Notes * Op Note - Omaira Vilchis MD - 01/24/2020 12:00 AM CDT PREOPERATIVE DIAGNOSIS: Right breast mass. POSTOPERATIVE DIAGNOSIS: Right breast mass. PROCEDURE PERFORMED: Ultrasound-guided mammotome biopsy right breast 12 o'clock position 4 cm from the nipple. SURGEON: Omaira Vilchis MD ANESTHESIA: Local. COMPLICATIONS: None. DESCRIPTION OF PROCEDURE: Patient was brought to the ultrasound suite and had an ultrasound of the 12 o'clock sector of the right breast was performed. The 1 cm lesion was identified. It appeared as a complex cystic mass. The breast was prepped, 1% Lidocaine was injected. A small deepak was made in the skin. The mammotome probe was introduced under direct ultrasound guidance into the lesion, which dissipated upon entry of the needle. Multiple vacuum-assisted biopsies were taken. The tissue was sent to pathology and X marking clip was placed at the biopsy site. She tolerated the procedure well. No apparent complications. #[id number] /[id number] documented in this encounter Plan of Treatment Not on file documented as of this encounter Procedures Procedure Name Priority Date/Time Associated Diagnosis Comments US GD BREAST BX RT BIRAD Routine 01/24/2020 2:18 PM CDT Breast mass, right MG DIAGNOSTIC RT DIGI Routine 01/24/2020 2:17 PM CDT Breast mass, right PATHOLOGY Routine 01/24/2020 12:00 AM CDT Breast mass, right documented in this encounter Results * US GD BREAST BX RT BIRAD (01/24/2020 2:18 PM CDT) Anatomical Region Laterality Modality Breast Right Ultrasound RIGHT BREAST STRUCTURE / Unknown 01/25/2020 7:22 AM CDT Impressions 01/25/2020 7:26 AM CDT IMPRESSION: Ultrasound guidance for Mammotome biopsy of a mildly suspicious complicated cyst within the right breast. Please see dedicated procedure report for additional real-time findings and impression Narrative 01/25/2020 7:26 AM CDT EXAMINATION: US GD BREAST BX RT BIRAD INDICATIONS: Unspecified lump in the right breast, unspecified quadrant Breast mass, right ? COMPARISON: 01/16/2020 TECHNIQUE: Transcutaneous ultrasound evaluation of the area of concern in the right breast was performed for analysis of grayscale and color doppler imaging characteristics as well as guidance for Mammotome biopsy performed by Dr. Vergara. A radiologist was not present for this procedure. FINDINGS: Preprocedural sonogram again demonstrates the target circumscribed hypoechoic gently lobulated 10 mm complex cyst at the 12:00 axis approximately 4 cm from the nipple. Multiple static images demonstrate mammotome biopsy within this region. Final image demonstrates clip deployment. No appreciable postprocedural hematoma. Procedure Note Chas Li MD - 01/25/2020 EXAMINATION: US GD BREAST BX RT BIRAD INDICATIONS: Unspecified lump in the right breast, unspecified quadrant Breast mass, right COMPARISON: 01/16/2020 TECHNIQUE: Transcutaneous ultrasound evaluation of the area of concernin the right breast was performed for analysis of grayscale and colordoppler imaging characteristics as well as guidance for Mammotome biopsyperformed by Dr. Vilchis. A radiologist was not present for this procedure. FINDINGS: Preprocedural sonogram again demonstrates the target circumscribed hypoechoic gently lobulated 10 mm complex cyst at the12:00 axis approximately 4 cm from the nipple. Multiple static imagesdemonstrate mammotome biopsy within this region. Final image demonstrates clip deployment. No appreciable postprocedural hematoma. IMPRESSION: Ultrasound guidance for Mammotome biopsy of a mildly suspiciouscomplicated cyst within the right breast. Please see dedicated procedure report for additional real-time findings and impression us Omaira Vilchis MD ULTRASOUND Final Resul t * Pathology (01/24/2020 12:00 AM CDT) COPATH REPORT ? [facility] ? [address] ? [place], [place] ??[address] ? [id number] ? Department of Pathology ? Pathology Report ? SURGICAL FINAL REPORT Patient Name: AILEEN MANCIA ? : 1975 (Age: 44) ?Location: [facility] Gender: F ?Collected Date: 01/24/2020 Med Rec #: [id number] ?Date Received: 01/24/2020 Date Reported: 01/28/2020 Provider: OMAIRA VILCHIS MD Specimen(s) Mammotome Biopsy, Right Breast 12:00 4cm FN Final Pathologic Diagnosis BREAST, RIGHT, 12:00, 4 CM FROM THE NIPPLE, BIOPSY: ? MICROCYSTS WITH APOCRINE METAPLASIA ? STROMAL FIBROSIS ? NO ATYPICAL HYPERPLASIA OR MALIGNANCY Electronically Signed Out ? MARIANO THOMPSON MD Pathologist SMO:brady Microscopic Description: Microscopic examination substantiates the above diagnosis. Clinical History Right breast mass Gross Description The specimen is received in a formalin-filled container labeled with the patient's name (Aileen Mancia), date of , and right breast 12:00 4 cm. The specimen consists of four cores of white-wright tissue ranging in size from 1.8 cm to 2 cm, all measuring approximately 0.4 cm in diameter. ??The specimen is entirely submitted in a single cassette. The tissue was fixed in 10% formalin between 6 and 72 hours prior to processing. ATH:brady Billing Fee Code(s): [address] [facility] 01/24/2020 01/24/2020 2:2 8 PM CDT Comment:MAMMOTOME BIOPSY, RI GHT BREAST 12:00 4CM FN Omaira Vilchis MD PATHOLOGY/CYTOLOGY ORDERABL ES Final Result [facility] [address] [place] [address], documented in this encounter Visit Diagnoses Diagnosis Breast mass, right Lump or mass in breast documented in this encounter Administered Medications Inactive Administered Medications - up to 3 most recent administrations Medication Order MAR Action Action Date Dose Rate Site lidocaine-EPINEPHrine 1 %[id number] injection 10 mL 10 mL, Intradermal, Once, 1 dose, On [place] 01/24/20 at 1400 Given 01/24/2020 2:00 PM CDT 10 mLs Right Breast sodium chloride 0.9 % irrigation 250 mL 250 mL, Irrigation, Once, 1 dose, On [place] 01/24/20 at 1400 New Bag 01/24/2020 2:00 PM CDT 250 mLs Right Breast documented in this encounter Care Teams Umbrella Tipper Hand Relationship Specialty Start Date End Date Natalie Starks MD PCP - General OBGYN 06/22/19 02/05/21 documented as of this encounter
--- OUTSIDE RECORDS SUMMARY | 2024-08-08 03:15 | XMS_ITS | Encounter Summary ---
Author Organization [facility] Address [address] [place] [address]. [place] [address] [place] [address] Care Team Providers Care Seaman Name Role Phone Natalie Starks MD Primary Care Provider Unavail able Reason for Referral * Imaging (Routine) - Closed Specialty Diagnoses / Procedures Referred By Patricia oliver Referred To Contact RADIOLOGY Diagnoses Breast lump on right side at 3 o'clock position At high risk for breast cancer Procedures MRI BREAST TRAV WWO CON BIRAD MRI BREAST TRAV WWO CON Omaira Garcia MD [address] [place] [address] Phone: tel: fax: Referral ID Status Reason Start Date Expiration Date Visits Re quested Visits Authorized [id number] Closed 10/27/2020 11/26/2021 1 1 Reason for Visit * Imaging (Routine) - Closed Specialty Diagnoses / Procedures Referred By Patricia oliver Referred To Contact RADIOLOGY Diagnoses Breast lump on right side at 3 o'clock position At high risk for breast cancer Procedures MRI BREAST TRAV WWO CON BIRAD MRI BREAST TRAV WWO CON Omaira Garcia MD [address] [place] [address] Phone: tel: fax: Referral ID Status Reason Start Date Expiration Date Visits Re quested Visits Authorized [id number] Closed 10/27/2020 11/26/2021 1 1 Encounter Details Date Type Department Care Team (Latest Contact Info) Description 11/04/2020 9:15 AM CDT - 11/04/2020 11:59 PM CDT Hospital Encounter [facility] [place] [address] Omaira Vilchis MD [address] [place] [address] Discharge Disposition: Home or Self Care (Routine [...] have Coronavirus / COVID-19? No / Unsure 11/04/2020 9:22 AM CDT documented as of this encounter Plan of Treatment Not on file documented as of this encounter Procedures Procedure Name Priority Date/Time Associated Diagnosis Comments MRI BREAST TRAV WWO CON BIRAD Routine 11/04/2020 10:26 AM CDT Breast lump on right side at 3 o'clock position At high risk for breast cancer documented in this encounter Results * MRI BREAST TRAV WWO CON BIRAD (11/04/2020 10:26 AM CDT) Anatomical Region Laterality Modality Breast Bilateral Magnetic Resonan ce 11/05/2020 12:2 8 PM CDT Impressions 11/05/2020 12:42 PM CDT IMPRESSION: 1. Tiny focus of malignant enhancement in the medial mid depth right breast without definite mammographic or sonographic correlate.. 2. Significant interval decrease in prominence of intraductal blood in the right breast. 3. Bilateral foci of persistent enhancement are not significantly changed and remain suspected benign. RECOMMENDATIONS: MRI guided biopsy of the medial right breast mass is warranted. Continued six-month follow-up MRI of the bilateral breasts to assess stability of the suspected benign foci of enhancement is also warranted. ASSESSMENT: BI-RADS 4-biopsy is recommended. Referred By: OMAIRA VILCHIS Interpreted By: Patel Moran MD, 11/05/2020 12:28 PM Narrative 11/05/2020 12:42 PM CDT EXAMINATION: Contrast enhanced MRI of the bilateral breasts. EXAM DATE: 11/04/2020 9:30 AM INDICATION: 6 month follow-up for bilateral suspected benign foci of persistent enhancement and intraductal blood in the right breast. Ultrasound of the left axilla recommended on prior MRI showed only normal lymph nodes. Family history of breast cancer. TECHNIQUE: Multisequence axial images before and after the uneventful administration of 12 mL of Dotarem contrast were obtained. COMPARISON: 03/10/2020 POSTPROCESSING: CueddaCAD was used for evaluation of enhancement curves, parenchymal subtraction, and maximum intensity projection imaging. FINDINGS: The breast parenchyma is dense. After contrast administration, there is mild background parenchymal enhancement. Left breast: No suspicious mass is seen on precontrast imaging. After contrast administration, there is no suspicious enhancement within the left breast. Multiple foci of persistent enhancement are seen throughout the left breast; these are not significantly changed from prior and remain suspected benign. Persistent prominent lymph nodes of the left axilla were previously shown to be morphologically normal with ultrasound. No skin or nipple abnormalities are identified. Right breast: No suspicious masses seen on precontrast imaging. Susceptibility artifact in the superior mid depth right breast from a biopsy clip is noted. After contrast administration, there is a tiny focus of suspicious enhancement in the medial mid depth right breast, DynaCAD location F-1.6. This measures 5 mm. This has no definite mammographic or sonographic correlate. Multiple additional foci of persistent enhancement are seen throughout the right breast, not significantly changed from prior; these remain suspected benign. Previously seen intraductal blood has decreased significantly in volume and signal characteristics. No lymphadenopathy, skin, or nipple abnormalities are identified. us Omaira Vilchis MD MRI Final Resul t documented in this encounter Visit Diagnoses Diagnosis Breast lump on right side at 3 o'clock position Lump or mass in breast At high risk for breast cancer documented in this encounter Administered Medications Inactive Administered Medications - up to 3 most recent administrations Medication Order MAR Action Action Date Dose Rate Site gadoterate meglumine (DOTAREM) 7.5 MMOL/15ML injection 12 mL 12 mL, Intravenous, IMG once as needed, Contrast, 1 dose, Starting on Tue11/04/20 at 1026, Until Tue11/04/20 at 1026 Given 11/04/2020 10:26 AM CDT 12 mLs Brianh benito Quach documented in this encounter Care Teams Seaman Relationship Specialty Start Date End Date Natalie Starks MD PCP - General OBGYN 06/22/19 02/05/21 documented as of this encounter
--- OUTSIDE RECORDS SUMMARY | 2024-08-08 03:15 | XMS_ITS | Encounter Summary ---
Author Organization [facility] Address [address] [place] [address]. [place] [address] [place] [address] Care Team Providers Care Processor Inspector Name Role Phone Natalie Starks MD Primary Care Provider Unavail able Reason for Referral * Imaging (Routine) - Closed Specialty Diagnoses / Procedures Referred By Contmaykel t Referred To Contact RADIOLOGY Diagnoses Breast mass Procedures BREAST RT [facility] Dionne Vilchis MD [address] [place] [address] Phone: tel: fax: [place] [address] Phone: tel: Referral ID Status Reason Start Date Expiration Date Visits Re quested Visits Authorized [id number] Closed 07/30/2020 08/29/2021 1 1 E BRAZING MACHINE OPERATOR Encounter Details Date Type Department Care Team (Latest Contact Info) Description 08/13/2020 1:46 PM FLAME BRAZING MACHINE OPERATOR - 08/13/2020 11:59 PM FLAME BRAZING MACHINE OPERATOR [place] [address] Dionne Vilchis MD [address] [place] [address] Discharge Disposition: Home or Self Care [...] COVID-19? No / Unsure 08/13/2020 1:45 PM FLAME BRAZING MACHINE OPERATOR documented as of this encounter Plan of Treatment Not on file documented as of this encounter Procedures Procedure Name Priority Date/Time Associated Diagnosis Comments US BREAST RT BIRAD LTD Routine 08/13/2020 2:47 PM FLAME BRAZING MACHINE OPERATOR Breast mass MG AILYNG W KRYSTINA RT DIGI Routine 08/13/2020 2:06 PM FLAME BRAZING MACHINE OPERATOR Mass of breast, right documented in this encounter Results * US BREAST RT BIRAD LTD (08/13/2020 2:47 PM FLAME BRAZING MACHINE OPERATOR) Anatomical Region Laterality Modality Breast Right Ultrasound 08/13/2020 2:20 PM FLAME BRAZING MACHINE OPERATOR Impressions 08/13/2020 2:37 PM FLAME BRAZING MACHINE OPERATOR =====IMPRESSION:===== No mammographic findings suggestive of malignancy. ASSESSMENT: ACR BI-RADS CATEGORY 2 - BENIGN FINDING(S) RECOMMENDATION: 1: Routine screening mammogram ??right ??in 1 year COMMENTS: ? Narrative 08/13/2020 2:37 PM FLAME BRAZING MACHINE OPERATOR EXAMINATION: Digital right diagnostic mammogram with 3-D tomosynthesis and right breast ultrasound [id number] EXAM DATE/TIME: 08/13/2020 1:49 PM REASON FOR EXAM: ??N ? COMPARISON: 01/16/2019, 01/16/2020, 01/24/2020 TECHNIQUE: Digital diagnostic mammography of the right breast was performed in addition to 3-D Tomosynthesis technique. This study was read with the assistance of a computer-aided detection system. And right breast ultrasound TISSUE DENSITY: The breast tissue is heterogeneously dense. FINDINGS: Biopsy marker seen in the superior right breast stable position of prior exam. No suspicious masses, malignant appearing calcifications, skin thickening or other abnormalities are present. ??No significant change from the prior exam. Correlation with ultrasound examination of right breast shows resolution of previous targeted finding. us Dionne Vilchis MD ULTRASOUND Final Resul t documented in this encounter Visit Diagnoses Diagnosis Breast mass Lump or mass in breast documented in this encounter Care Teams Processor Inspector Relationship Specialty Start Date End Date Natalie Starks MD PCP - General OBGYN 06/22/19 02/05/21 documented as of this encounter
--- OUTSIDE RECORDS SUMMARY | 2024-08-08 03:15 | XMS_ITS | Encounter Summary ---
Author Organization [facility] Address [address] [place] [address]. [place] [address] [place] [address] Care Team Providers Care Artillery Specialist Name Role Phone Natalie Starks MD Primary Care Provider Unavail able Reason for Referral * Imaging (Routine) - Closed Specialty Diagnoses / Procedures Referred By Patricia oliver Referred To Contact RADIOLOGY Diagnoses Solitary benign cyst of right breast Procedures US BREAST RT [facility] Natalie Starks MD Referral ID Status Reason Start Date Expiration Date Visits Re quested Visits Authorized [id number] Closed 06/20/2019 07/19/2020 1 1 UNTS PAYABLE COORDINATOR Reason for Visit * Imaging (Routine) - Closed Specialty Diagnoses / Procedures Referred By Contmaykel t Referred To Contact RADIOLOGY Diagnoses Solitary benign cyst of right breast Procedures US BREAST RT [facility] Natalie Starks MD Referral ID Status Reason Start Date Expiration Date Visits Re quested Visits Authorized [id number] Closed 06/20/2019 07/19/2020 1 1 Encounter Details Date Type Department Care Team (Latest Contact Info) Description 07/16/2019 9:38 AM ACCOUNTS PAYABLE COORDINATOR - 07/16/2019 11:59 PM ACCOUNTS PAYABLE COORDINATOR Hospital Encounter [facility] Ultrasound [address] [place] [address] Natalie Starks MD Discharge Disposition: Home or Self Care (Routine Discharge) Social History Tobacco Use Types Packs/Day Years Used Date Smoking Tobacco: Never Assessed Comments Unknown Sex and Gender Information Value Date Recorded Sex Assigned at Not on file Legal Sex Female 8:14 AM CDT Gender Identity Not on file Sexual Orientation Not on file documented as of this encounter Plan of Treatment Not on file documented as of this encounter Procedures Procedure Name Priority Date/Time Associated Diagnosis Comments US BREAST RT [facility] Routine 07/16/2019 10:07 AM ACCOUNTS PAYABLE COORDINATOR Solitary benign cyst of right breast documented in this encounter Results * US BREAST RT [employer] (07/16/2019 10:07 AM ACCOUNTS PAYABLE COORDINATOR) Anatomical Region Laterality Modality Breast Right Ultrasound 07/16/2019 10:0 3 AM ACCOUNTS PAYABLE COORDINATOR Impressions 07/16/2019 10:05 AM ACCOUNTS PAYABLE COORDINATOR =====IMPRESSION:===== Cystic mass with some internal nonmobile debris at the 12:00 position right breast is likely a benign lesion. Stable. As a precaution, 6 month follow-up recommended. ASSESSMENT: ACR BI-RADS Category 3 - Probably benign. RECOMMENDATION: 1: Follow-up diagnostic mammogram and ultrasound ??right ??in 6 months COMMENTS: Follow-up recommended when patient is due for annual mammography of both breasts in 6 months. Narrative 07/16/2019 10:05 AM ACCOUNTS PAYABLE COORDINATOR EXAMINATION: Right breast ultrasound EXAM DATE/TIME: 07/16/2019 9:38 AM REASON FOR EXAM: ? 6 month follow-up probably benign right breast mass COMPARISON: 01/16/2019 TECHNIQUE: Targeted ultrasound of the right breast was performed. FINDINGS: Cystic mass with internal septations at the 12:00 position 4 cm from the nipple. This measures 9 x 5 x 7 mm. Stable compared with 01/16/2019. Likely a complicated cyst. No interval progression. Natalie Starks MD ULTRASOUND Final Result documented in this encounter Visit Diagnoses Diagnosis Solitary benign cyst of right breast Solitary cyst of breast documented in this encounter Care Teams Artillery Specialist Relationship Specialty Start Date End Date Natalie Straks MD PCP - General OBGYN 06/22/19 02/05/21 documented as of this encounter
--- OUTSIDE RECORDS SUMMARY | 2024-08-08 03:15 | XMS_ITS | Encounter Summary ---
Author Organization [facility] Address [address] [place] [address]. [place], [place] [address] [place] [address] Care Team Providers Care Company Marker Name Role Phone Bairon Brown MD Primary Care Provider [phone] Encounter Details Date Type Department Care Team (Latest Contact Info) Description 07/25/2024 Travel Social History Tobacco Use Types Packs/Day Years Used Date Smoking Tobacco: Never Smokeless Tobacco: Never Alcohol Use Standard Drinks/Week Comments Not Currently [...] Diagnoses Not on filedocumented in this encounter Additional Health Concerns Infection Onset Date Last Indicated Resolved Time COVID-19 Rule Out 07/25/2024 07/25/2024 07/25/2024 6:44 PM EARLY CHILDHOOD COORDINATOR documented as of this encounter Care Teams Company Marker Relationship Specialty Start Date End Date Bairon Brown MD [facility] [address] [place] [address] PCP - General UNKNOWN PHYSICIAN SPECIALTY 07/25/24 documented as of this encounter
--- OUTSIDE RECORDS SUMMARY | 2024-08-08 03:15 | XMS_ITS | Encounter Summary ---
Author Organization [facility] Address [address] [place] [address]. [place] [address] [place] [address] Care Team Providers Care Bread Baker Name Role Phone Natalie Starks MD Primary Care Provider Unavail able Encounter Details Date Type Department Care Team (Latest Contact Info) Description 11/04/2020 Travel Social History Tobacco Use Types Packs/Day [...] on filedocumented in this encounter Care Teams Bread Baker Relationship Specialty Start Date End Date Natalie Starks MD PCP - General OBGYN 06/22/19 02/05/21 documented as of this encounter
--- OUTSIDE RECORDS SUMMARY | 2024-08-08 03:15 | XMS_ITS | Encounter Summary ---
Author Organization [facility] Address [address] [place] [address]. [place] [address] [place] [address] Care Team Providers Care Healthcare Management Consultant Name Role Phone Natalie Starks MD Primary Care Provider Unavail able Reason for Referral * Imaging (Routine) - Closed Specialty Diagnoses / Procedures Referred By Contac t Referred To Contact RADIOLOGY Diagnoses Breast cancer screening, high risk patient Procedures MRI BREAST TRAV WWO CON Dionne Garcia MD [address] [place] [address] Phone: tel: fax: Referral ID Status Reason Start Date Expiration Date Visits Re quested Visits Authorized [id number] Closed 03/10/2020 04/10/2020 1 1 Reason for Visit * Imaging (Routine) - Closed Specialty Diagnoses / Procedures Referred By Contac t Referred To Contact RADIOLOGY Diagnoses Breast cancer screening, high risk patient Procedures MRI BREAST TRAV WWO CON Dionne Garcia MD [address] [place] [address] Phone: tel: fax: Referral ID Status Reason Start Date Expiration Date Visits Re quested Visits Authorized [id number] Closed 03/10/2020 04/10/2020 1 1 Encounter Details Date Type Department Care Team (Latest Contact Info) Description 03/10/2020 11:07 AM CDT - 03/10/2020 11:59 PM CDT Hospital Encounter [facility] [place] [address] Dionne Vilchis MD [facility] [address] [id number] Discharge Disposition: Home or Self Care (Routine [...] have Coronavirus / COVID-19? No / Unsure 03/10/2020 11:05 AM CDT documented as of this encounter Plan of Treatment Not on file documented as of this encounter Procedures Procedure Name Priority Date/Time Associated Diagnosis Comments MRI BREAST TRAV WWO CON BIRAD Routine 03/10/2020 12:59 PM CDT Breast cancer screening, high risk patient documented in this encounter Results * MRI BREAST TRAV WWO CON BIRAD (03/10/2020 12:59 PM CDT) Anatomical Region Laterality Modality Breast Bilateral Magnetic Resonan ce 03/12/2020 8:41 AM CDT Impressions 03/12/2020 9:11 AM CDT IMPRESSION: 1. Morphologically abnormal left axillary lymph nodes. 2. Significant old blood product within the ducts of the right breast, likely secondary to recent biopsy. 3. Extensive scattered foci of persistent enhancement which are suspected benign.. RECOMMENDATIONS: 1. Ultrasound of the left axilla to evaluate for morphologically abnormal lymph nodes; if a morphologically abnormal lymph node can be confidently identified, ultrasound-guided biopsy or fine needle aspiration of the most suspicious lymph node should be performed. 2. Follow-up MRI of the breasts in 6 months to assess stability of the bilateral suspected benign foci of persistent enhancement, and to evaluate progression of the intraductal blood product of the right breast. ASSESSMENT: BI-RADS 0-additional imaging is recommended. Narrative 03/12/2020 9:11 AM CDT EXAMINATION: Contrast enhanced MRI of the bilateral breasts. INDICATION:Superior right breast lump with subsequent right ultrasound guided biopsy with benign results. TECHNIQUE: Multisequence axial images before and after the uneventful administration of 12 mL of Dotarem contrast were obtained. COMPARISON: Diagnostic mammogram dated 01/16/2020, ultrasound of the right breast dated 01/16/2020, and imaging from 01/24/2020 related to the ultrasound-guided biopsy. POSTPROCESSING: [employer] was used for evaluation of enhancement curves, parenchymal subtraction, and maximum intensity projection imaging. FINDINGS: The breast parenchyma is dense. After contrast administration, there is moderate background parenchymal enhancement. Left breast: No suspicious mass is seen on precontrast imaging. After contrast administration, there is no suspicious enhancement within the left breast. Multiple foci of persistent enhancement are seen throughout the left breast. These are suspected benign. There are morphologically abnormal left axillary lymph nodes for which further imaging is recommended. No skin or nipple abnormalities are identified. Right breast: No suspicious masses seen on precontrast imaging. There is susceptibility artifact from the biopsy clip central right breast. After contrast administration, there is no suspicious enhancement in the right breast. Multiple foci of persistent enhancement are seen throughout the right breast; these are suspected benign. Mild postbiopsy enhancement is seen along the biopsy tract. No significant fluid collection is seen at the biopsy site, although a small fluid collection could be masked by susceptibility artifact. There is T1 hyperintense and STIR hypointense material within the anterior ducts consistent with old blood product, probably secondary to recent biopsy. No lymphadenopathy, skin, or nipple abnormalities are identified. us Dionne Vilchis MD MRI Final Resul t documented in this encounter Visit Diagnoses Diagnosis Breast cancer screening, high risk patient Screening mammogram for high-risk patient documented in this encounter Administered Medications Inactive Administered Medications - up to 3 most recent administrations Medication Order MAR Action Action Date Dose Rate Site gadoterate meglumine (DOTAREM) 7.5 MMOL/15ML injection 12 mL 12 mL, Intravenous, IMG once as needed, Contrast, 1 dose, Starting on 03/10/20 at 1259, Until Tue03/10/20 at 1259 Given 03/10/2020 12:59 PM CDT 12 mLs Righ t Arm documented in this encounter Care Teams Healthcare Management Consultant Relationship Specialty Start Date End Date Natalie Starks MD PCP - General OBGYN 06/22/19 02/05/21 documented as of this encounter
--- OUTSIDE RECORDS SUMMARY | 2024-08-08 03:15 | XMS_ITS | Encounter Summary ---
Author Organization [facility] Address [address] [place] [address]. [place] [address] [place] [address] Care Team Providers Care Refractory Repairer Name Role Phone Natalie Starks MD Primary Care Provider Unavail able Reason for Referral * Imaging (Routine) - Closed Specialty Diagnoses / Procedures Referred By Contac t Referred To Contact RADIOLOGY Diagnoses Abnormal MRI Procedures US AXILLARY NON BREAST Dionne Vilchis MD [address] [place] [address] Phone: tel: fax: [place] [address] Phone: tel: Referral ID Status Reason Start Date Expiration Date Visits Re quested Visits Authorized [id number] Closed 03/13/2020 04/12/2021 1 1 Reason for Visit * Imaging (Routine) - Closed Specialty Diagnoses / Procedures Referred By Contac t Referred To Contact RADIOLOGY Diagnoses Abnormal MRI Procedures US AXILLARY NON BREAST Dionne Vilchis MD [address] [place] [phone] Phone: tel: fax: [place] [address] Phone: tel: Referral ID Status Reason Start Date Expiration Date Visits Re quested Visits Authorized [id number] Closed 03/13/2020 04/12/2021 1 1 Encounter Details Date Type Department Care Team (Latest Contact Info) Description 03/19/2020 8:30 AM CDT - 03/19/2020 11:59 PM CDT Hospital Encounter [facility] [address] [place] [address] Dionne Vilchis MD [address] [place] [phone] Discharge Disposition: Home or Self Care (Routine [...] Name Priority Date/Time Associated Diagnosis Comments US AXILLARY NON BREAST LT Routine 03/19/2020 9:46 AM CDT Abnormal MRI documented in this encounter Results * US AXILLARY NON BREAST (03/19/2020 9:46 AM CDT) Anatomical Region Laterality Modality Extremity Ultrasound 03/19/2020 9:50 AM CDT Impressions 03/19/2020 9:56 AM CDT =====IMPRESSION:===== No suspicious lymph nodes are present in the region of the left axilla. In light of the patient's prior right breast biopsy revealing negative findings and no definite suspicious lymph nodes on the current MRI. A 6 month follow-up bilateral breast MRI recommended. Was discussed with the patient that she is to return to her physician earlier if there are any changes that are present within the left axilla during the interval from today and the follow-up breast MRI. ASSESSMENT: ACR BI-RADS CATEGORY 3 - PROBABLY BENIGN FINDING(S) RECOMMENDATION: 1: ??screening mammogram ??bilateral ??. 2: Breast MRI ??bilateral ??in 6 months. COMMENTS: ? Narrative 03/19/2020 9:56 AM CDT Examination: Left axillary ultrasound. Reason For Exam: ??Abnormal MRI ? Patient is being followed previously for a right breast cyst. There is a subsequent right breast biopsy of this cystic area and a subsequent breast MRI. Patient reports having a sister with breast cancer. Comparison: MRI March 10, 2020 Technique: Left breast ultrasound was performed. Grayscale and color Doppler imaging was performed. Tissue density: The breast tissue is extremely dense. Findings: Grayscale images of the left axilla is performed. There are morphologically normal lymph nodes that are present. These do not have thickened cortex. There are fatty blake that are present. One of the lymph node measures approximate 1.9 x 0.6 x 0.9 cm. There is an additional lymph node that is present. This measures approximately 7.5 mm in short axis dimension. This contains a fatty blake. At real-time imaging there is noted a small morphologically normal lymph node that is present subadjacent to the vasculature of the axilla. This can be seen on cine images at time stamp 8:49 image #80. This measures approximate 7 mm in short axis dimension and has normal morphology. No thickened cortex. Procedure Note Jensen Colon MD - 03/19/2020 Examination: Left axillary ultrasound. Reason For Exam: Abnormal MRI Patient is being followed previously for a right breast cyst. There chioma subsequent right breast biopsy of this cystic area and a subsequentbreast MRI. Patient reports having a sister with breast cancer. Comparison: MRI March 10, 2020 Technique: Left breast ultrasound was performed. Grayscale and color Doppler imaging was performed. Tissue density: The breast tissue is extremely dense. Findings: Grayscale images of the left axilla is performed. There are morphologically normal lymph nodes that are present. These do not have thickened cortex. There are fatty blake that are present. One of thelymph node measures approximate 1.9 x 0.6 x 0.9 cm. There is an additionallymph node that is present. This measures approximately 7.5 mm in short axis dimension. This contains a fatty blake. At real-time imaging there isnoted a small morphologically normal lymph node that is present subadjacent to the vasculature of the axilla. This can be seen on cine images at time stamp 8:49 image #80. This measures approximate 7 mm in short axis dimension and has normal morphology. No thickened cortex. =====IMPRESSION:===== No suspicious lymph nodes are present in the region of the left axilla.In light of the patient's prior right breast biopsy revealing negative findings and no definite suspicious lymph nodes on the current MRI. A 6 month follow-up bilateral breast MRI recommended. Was discussed with the patient that she is to return to her physician earlier if there are any changes that are present within the left axilla during the interval from today and the follow-up breast MRI. ASSESSMENT: ACR BI-RADS CATEGORY 3 - PROBABLY BENIGN FINDING(S) RECOMMENDATION: 1: screening mammogram bilateral . 2: Breast MRI bilateral in 6 months. COMMENTS: us Dionne Vilchis MD ULTRASOUND Final Resul t documented in this encounter Visit Diagnoses Diagnosis Abnormal MRI Other nonspecific (abnormal) findings on radiological and other examinations of body structure documented in this encounter Care Teams Refractory Repairer Relationship Specialty Start Date End Date Natalie Starks MD PCP - General OBGYN 06/22/19 02/05/21 documented as of this encounter
--- OUTSIDE RECORDS SUMMARY | 2024-08-08 03:15 | XMS_ITS | Encounter Summary ---
Author Organization [facility] Address [address] [place] [address]. [place] [address] [place] [address] Care Team Providers Care Wildlife Conservation Professor Name Role Phone Natalie Starks MD Primary Care Provider Unavail able Encounter Details Date Type Department Care Team (Latest Contact Info) Description 03/10/2020 Travel Social History Tobacco Use Types Packs/Day [...] on filedocumented in this encounter Care Teams Wildlife Conservation Professor Relationship Specialty Start Date End Date Natalie Starks MD PCP - General OBGYN 06/22/19 02/05/21 documented as of this encounter
--- OUTSIDE RECORDS SUMMARY | 2024-08-08 03:15 | XMS_ITS | Encounter Summary ---
Author Organization [facility] Address [address] [place] [address]. [place] [address] [place] [address] Care Team Providers Care Veterinarian Epidemiologist Name Role Phone Bairon Brown MD Primary Care Provider [phone] Reason for Referral * Imaging (Emergency) - New Request Specialty Diagnoses / Procedures Referred By Contac t Referred To Contact RADIOLOGY Procedures CT ABD+PEL WO CON Terence Pimentel MD [address] [place] [id number] Phone: tel: fax: Referral ID Status Reason Start Date Expiration Date V isits Requested Visits Authorized [id number] New Request 07/25/2024 07/25/2025 1 1 ENTICE ELECTRICIAN Reason for Visit * Reason Comments Flu Like Symptoms Encounter Details Date Type Department Care Team (Late st Contact Info) Description 07/25/2024 5:40 PM APPRENTICE ELECTRICIAN - 07/25/2024 10:09 PM APPRENTICE ELECTRICIAN Emergency [facility] [place] [address] Terence Pimentel MD [address] [place] [id number] Flu Like Symptoms Discharge Disposition: Home or [...] on file documented as of this encounter Last Filed Vital Signs Vital Sign Reading Time Taken Comments Blood Pressure 136/80 07/25/2024 10:00 PM APPRENTICE ELECTRICIAN Pulse 79 07/25/2024 10:00 PM APPRENTICE ELECTRICIAN Temperature 36.8 ??C (98.3 ??F) 07/25/2024 5:37 PM CS T Respiratory Rate 16 07/25/2024 10:00 PM APPRENTICE ELECTRICIAN Oxygen Saturation 99% 07/25/2024 10:00 PM APPRENTICE ELECTRICIAN Inhaled Oxygen Concentration - - Weight 65.4 kg (144 lb 2.9 oz) 07/25/2024 5:37 P M APPRENTICE ELECTRICIAN Height 152.4 cm (5') 07/25/2024 5:37 PM APPRENTICE ELECTRICIAN Body Mass Index 28.16 07/25/2024 5:37 PM APPRENTICE ELECTRICIAN documented in this encounter Discharge Instructions * Discharge Instructions* Terence Pimentel MD - 07/25/2024 9:59 PM APPRENTICE ELECTRICIAN Continue all present medication as prescribed. Take Zofran as prescribed. Fluids. Advance diet as tolerated. Follow-up with primary care provider in the next 3 to 5 days call her office in the a.m. for appointment. Return to emergency department for any problems or concerns. ENTICE ELECTRICIAN * Attachments The following attachments cannot be sent through Care Everywhere. * Viral Gastroenteritis Discharge Instructions, Adult (Finnish) * Diarrhea, Adult ED (Finnish) documented in this encounter Medications at Time of Discharge ondansetron (ZOFRAN-ODT) 4 MG disintegrating tablet Take 1 tablet (4 mg total) by mouth every 8 (eight) hours as needed for Nausea. 12 tablet 07/25/2024 documented as of this encounter ED Notes * Terence Pimentel MD - 07/25/2024 5:50 PM CST Chief Complaint Chief Complaint Patient presents with Flu Like Symptoms History of Present Illness Aileen Frost is a 49-year-old female presents to the ED from home for evaluation of multiple complaints. Patient reports symptoms began yesterday after getting off work and complains of diarrhea,vomiting, subjective fever, chills, and back pain. Last night, patient states she was taking a shower, and her skin has been inflamed and sensitive to the touch since. 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 Today, patient reports x 4 episodes of emesis and at least x 5 diarrhea episodes.She states having chest pain earlier but has since been relieved. Patient denies any urinary symptoms. No aggravating or relieving factors. LMP x 5 years ago. Patient lives at home. NKDA. No surgical history. Denies tobacco, or illicit drug use but admits social drinking. Patient is COVID immunized. PCP is Bairon Brown MD. History provided by patient. Medical History ALLERGIES: Review of patient's allergies indicates: No Known Allergies MEDICATIONS: Prior to Admission medications Medication Sig Start Date End Date Taking? Authorizing Provider ondansetron (ZOFRAN-ODT) 4 MG disintegrating tablet Take 1 tablet (4 mg total) by mouth every 8 (eight) hours as needed for Nausea. 07/25/24 Yes Terence Pimentel MD PAST MEDICAL HISTORY: History reviewed. No pertinent past medical history. PAST SURGICAL HISTORY: History reviewed. No pertinent surgical history. FAMILY HISTORY: Family History Problem Relation Name Age of Onset Breast Cancer Sister 48 SOCIAL HISTORY: Social History Tobacco Use Smoking status: Never Smokeless tobacco: Never Substance Use Topics Alcohol use: Not Currently Drug use: Not Currently Review of Systems Review of Systems Constitutional: Positive for chills and fever. HENT: Negative for congestion, rhinorrhea and sore throat. Eyes: Negative for photophobia. Respiratory: Negative for cough, shortness of breath and wheezing. Cardiovascular: Negative for chest pain, palpitations and leg swelling. Gastrointestinal: Positive for diarrhea, nausea and vomiting. Negative for abdominal pain and constipation. Endocrine: Negative for polydipsia and polyuria. Genitourinary: Negative for dysuria and frequency. Musculoskeletal: Positive for back pain. Negative for neck pain and neck stiffness. Skin: Negative for pallor and rash. Allergic/Immunologic: Negative for immunocompromised state. Neurological: Negative for syncope, light-headedness, numbness and headaches. Hematological: Does not bruise/bleed easily. Psychiatric/Behavioral: Negative for suicidal ideas. Physical Exam Filed Vitals: 07/25/24 1737 07/25/24 2200 BP: (!) 161/98 136/80 Pulse: (!) 104 79 Resp: 20 16 Temp: 98.3 ??F (36.8 ??C) TempSrc: Temporal SpO2: 98% 99% Weight: 65.4 kg (144 lb 2.9 oz) Height: 1.524 m (5') Physical Exam Vitals and nursing note reviewed. Constitutional: General: She is not in acute distress. Appearance: She is well-developed. HENT: Head: Normocephalic and atraumatic. Right Ear: External ear normal. Left Ear: External ear normal. Eyes: General: No scleral icterus. Conjunctiva/sclera: Conjunctivae normal. Pupils: Pupils are equal, round, and reactive to light. Neck: Vascular: No JVD. Cardiovascular: Rate and Rhythm: Normal rate and regular rhythm. Heart sounds: Normal heart sounds. No murmur heard. No friction rub. No gallop. Pulmonary: Effort: Pulmonary effort is normal. No respiratory distress. Breath sounds: Normal breath sounds. No stridor. No wheezing or rales. Chest: Chest wall: No tenderness. Abdominal: General: Bowel sounds are normal. There is no distension. Palpations: Abdomen is soft. There is no mass. Tenderness: There is no abdominal tenderness. There is no guarding or rebound. Musculoskeletal: General: No deformity. Normal range of motion. Cervical back: Normal range of motion and neck supple. Comments: Minimal CVA tenderness bilaterally Skin: General: Skin is warm and dry. Findings: No rash. Neurological: Mental Status: She is alert and oriented to person, place, and time. Psychiatric: Behavior: Behavior normal. Thought Content: Thought content normal. Judgment: Judgment normal. Diagnostic Studies / Procedures ELECTROCARDIOGRAMS: No results found for this visit on 07/25/24. LABORATORY STUDIES: Results for orders placed or performed during the hospital encounter of 07/25/24 CBC W/DIFF AUTOMATED Result Value Ref Range WBC 5.30 4.5 - 11.0 x10'3/uL RBC 5.86 (H) 4.20 - 5.40 x10'6/uL HGB 12.7 12.0 - 16.0 G/DL HCT 41.6 38.0 - 48.0 % MCV 71.0 (L) 81.0 - 99.0 FL MCH 21.7 (L) 27.0 - 31.0 PG MCHC 30.5 (L) 32.0 - 36.0 G/DL RDW 14.5 11.5 - 14.5 % PLT 307 130 - 400 x10'3/uL MPV 9.0 (L) 9.3 - 12.2 FL DIFFERENTIAL TYPE AUTOMATED DIFFERENTIAL NEUTROPHILS % 79.0 % LYMPHOCYTES % 14.0 % MONOCYTES % 6.4 % EOSINOPHILS 0.2 % BASOPHILS 0.2 % IMMATURE GRANS % 0.2 % ABS. NEUTROPHILS 4.19 1.80 - 7.70 x10'3/uL ABS. LYMPHOCYTES 0.74 (L) 1.00 - 4.80 x10'3/uL ABS. MONOCYTES 0.34 0.24 - 0.86 x10'3/uL ABS. EOSINOPHILS 0.01 (L) 0.04 - 0.36 x10'3/uL ABS. BASOPHILS 0.01 0.01 - 0.08 x10'3/uL ABS. IMMATURE GRANULOCYTES 0.01 0.00 - 0.49 x10'3/uL RBC MORPHOLOGY SLIDE REVIEWED HYPOCHROMASIA 1+ MICRO 1+ PLT EST. ADEQUATE COMPREHENSIVE METABOLIC PANEL Result Value Ref Range GLUCOSE 99 70 - 99 MG/DL BUN 11 7 - 18 MG/DL CREATININE S/P/B 0.80 0.55 - 1.02 MG/DL SODIUM S/P/B 137 136 - 145 MMOL/L POTASSIUM S/P/B 3.5 3.5 - 5.1 MMOL/L CHLORIDE S/P/B 108 97 - 115 MMOL/L CO2 24.8 21 - 32 MMOL/L CALCIUM S/P/B 9.3 8.5 - 10.1 MG/DL BILIRUBIN TOTAL S/P/B 0.6 0.2 - 1.2 MG/DL TOTAL PROTEIN S/P/B 8.1 6.4 - 8.2 G/DL ALBUMIN S/P/B 3.7 3.4 - 5.0 G/DL AST 15 15 - 37 U/L ALT 23 14 - 55 U/L ALKALINE PHOSPHATASE S/P/B 107 50 - 136 U/L ANION GAP 4.2 2 - 10 MMOL/L BUN CREATININE RATIO 13.8 6 - 26 A/G RATIO 0.8 (L) 1.0 - 2.0 RATIO GFR ESTIMATE 89 (L) >90 ML/MIN/1.73 M2 URINALYSIS Result Value Ref Range SPECIMEN TYPE URINE CLEAN CATCH COLOR (U) YELLOW TRANSPARENCY CLEAR SPECIFIC GRAVITY (U) 1.031 (H) 1.001 - 1.030 U PH 5.5 5.0 - 9.0 LEUKOCYTES (U) NEGATIVE NEGATIVE NITRITES NEGATIVE NEGATIVE PROTEIN RANDOM (U) 20 <30 MG/DL GLUCOSE (U) NORMAL NORMAL MG/DL KETONES MG/DL (U) 10 (A) NEGATIVE MG/DL UROBILINOGEN NORMAL NORMAL MG/DL BILIRUBIN (U) NEGATIVE NEGATIVE MG/DL BLOOD (U) 1+ (A) NEGATIVE MUCUS FEW /LPF WBC/HPF 2 <6 /HPF RBC/HPF 16 (H) <6 /HPF SQUAMOUS EPITHELIALS RARE /HPF CORONAVIRUS (COVID 19) Specimen: NASAL Result Value Ref Range CORONAVIRUS SARS COV 2 RNA NEGATIVE NEGATIVE SPECIMEN TYPE NASAL INFLUENZA A & B Specimen: NASAL Result Value Ref Range SPECIMEN TYPE SWAB INFLUENZA A NEGATIVE NEGATIVE INFLUENZA B NEGATIVE NEGATIVE IMAGING STUDIES CT ABD+PEL WO CON Final Result by User, [id number] (07/25 2058) [address] [address] EXAM: CT ABD+PEL WO CON DATE: 07/25/2024 [...] probably mild fatty infiltration of the liver. Normal noncontrast appearance of the spleen, adrenal glands, and pancreas. Mostly contracted gallbladder. No calcifications in the kidneys. Poorly visualized ureters with no evidence of obstruction. Probable phlebolith distally in the left side of the pelvis. Normal urinary bladder. There is a partially calcified fibroid associated with the uterine fundus. This is superiorly located in the anteverted uterus and measures about 3 cm. Tiny calcifications are present. No adnexal mass. Small amount fluid could be physiologic. Moderate stool volume. Normal appendix. Fecal material from the hepatic flexure distally is normal density. The more proximal aspects of the large bowel have lower density stool. This can be associated with diarrhea. Additionally, multiple small bowel segments contain fluid. They are normal diameter, but unless there has been a recent large fluid ingestion, possible enteritis. Multiple normal size mesenteric lymph nodes are nonspecific findings. Stomach is moderately distended with mixed density material. Mild lumbar dextroscoliosis. IMPRESSION: Possible enteritis. Referred By: Interpreted By: Homar Whaley MD, 07/25/2024 8:49 PM ED Course / Medical Decision Making Medical Decision Making Patient is a 49-year-old female presents to the ED from home for evaluation of multiple complaints.Patient reports symptoms began yesterday after getting off work and complains of diarrhea, vomiting, subjective fever, chills, and back pain. Last night, patient states she was taking a shower, and her skin has been inflamed and sensitive to the touch since. 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 Today, patient reports x 4 episodes of emesis and at least x 5 diarrhea episodes. She states having chest pain earlier but has since been relieved. Patient denies any urinary symptoms. No aggravating or relieving factors. LMP x 5 years ago. Patient lives at home. NKDA. No surgical history. Denies tobacco, or illicit drug use but admits social drinking. Patient is COVID immunized. PCP is Bairon Brown MD. History provided by patient. Problems Addressed: Viral enteritis: acute illness or injury Details: Fluids Zofran Amount and/or Complexity of Data Reviewed External Data Reviewed: notes. Details: Reviewed note from 01/24/2020 Dr. Garcias Labs: ordered. Decision-making details documented in ED Course. Radiology: ordered. Decision-making details documented in ED Course. Risk Prescription drug management. Parenteral controlled substances. Pulse Ox ordered and interpreted: Saturation: 98 (%) Oxygen Delivery: room air Interpretation: No acute hypoxia at this time. Rhythm strip ordered and interpreted: Normal sinus rhythm. Rate 104. No ectopy. Clinical Impression Viral enteritis (Primary) Disposition: Discharge Voice-recognition software used. Esau Martinez, acting as a scribe, am personally taking down the notes in the presence of Dr. Terence Pimentel MD. Take no action on this note until reviewed and authenticated by the physician. Terence Pimentel MD 07/25/242202 ENTICE ELECTRICIAN * Shania Singleton RN - 07/25/2024 5:35 PM CST Pt to ER with c/o body aches, diarrhea, suspected fever at home, vomiting since last night. ENTICE ELECTRICIAN documented in this encounter Plan of Treatment Not on file documented as of this encounter Procedures Procedure Name Priority Date/Time Associated Diagnosis Comments CT ABD+PEL WO CON STAT 07/25/2024 8:1 2 PM APPRENTICE ELECTRICIAN HC URINALYSIS AUTO W/O MICRO STAT 07/25/2024 6:15 PM APPRENTICE ELECTRICIAN CORONAVIRUS (COVID 19) STAT 5:57 PM APPRENTICE ELECTRICIAN INFLUENZA A & B STAT 07/25/2024 5:57 PM APPRENTICE ELECTRICIAN COMPREHENSIVE METABOLIC PANEL STAT 07/25/2024 5:57 PM APPRENTICE ELECTRICIAN CBC W/DIFF AUTOMATED STAT 07/25/2024 5:57 PM APPRENTICE ELECTRICIAN documented in this encounter Results * CT ABD+PEL WO CON (07/25/2024 8:12 PM APPRENTICE ELECTRICIAN) Anatomical Region Laterality Modality Abdomen Computed Tomogra phy 07/25/2024 8:49 PM APPRENTICE ELECTRICIAN Impressions 07/25/2024 8:58 PM APPRENTICE ELECTRICIAN IMPRESSION: Possible enteritis. Referred By: ?? Interpreted By: Homar Whaley MD, 07/25/2024 8:49 PM Narrative 07/25/2024 8:58 PM APPRENTICE ELECTRICIAN [address] [place], [place] [address] EXAM: CT ABD+PEL WO CON DATE: 07/25/2024 [...] Procedure Note Homar Whaley MD - 07/25/2024 [facility] [address] [place], [place] [address] EXAM: CT ABD+PEL WO CON DATE: 07/25/2024 [...] Result * (ABNORMAL) URINALYSIS (07/25/2024 6:15 PM APPRENTICE ELECTRICIAN) SPECIMEN TYPE URINE CLEAN CATCH 07/25/2024 6:15 PM [facility] COLOR (U) YELLOW 07/25/2024 7:07 PM [facility] TRANSPARENCY CLEAR 07/25/2024 7:07 PM [facility] SPECIFIC GRAVITY (U) 1.031(H) 1.001 - 1.030 07/25/2024 7:07 PM [facility] U PH 5.5 5.0 - 9.0 07/25/2024 7:07 PM [facility] LEUKOCYTES (U) NEGATIVE NEGATIVE 07/25/2024 7:07 PM [facility] NITRITES NEGATIVE NEGATIVE 07/25/2024 7:07 PM [facility] PROTEIN RANDOM (U) 20 <30 MG/DL 07/25/2024 7:07 PM [facility] GLUCOSE (U) NORMAL NORMAL MG/DL 07/25/2024 7:07 PM [facility] KETONES MG/DL (U) 10(A) NEGATIVE MG/DL 07/25/2024 7:07 PM [facility] UROBILINOGEN NORMAL NORMAL MG/DL 07/25/2024 7:07 PM [facility] BILIRUBIN (U) NEGATIVE NEGATIVE MG/DL 07/25/2024 7:07 PM [facility] BLOOD (U) 1+(A) NEGATIVE 07/25/2024 7:07 PM [facility] MUCUS FEW /LPF 07/25/2024 7:07 PM [facility] WBC/HPF 2 <6 /HPF 07/25/2024 7:07 PM [facility] RBC/HPF 16(H) <6 /HPF 07/25/2024 7:07 PM [facility] SQUAMOUS EPITHELIALS RARE /HPF 07/25/2024 7:07 PM [facility] URINE SPECIMEN OBTAINED BY CLEAN CATCH PROCEDURE / Unknown 07/25/2024 6:15 PM APPRENTICE ELECTRICIAN us Terence Pimentel MD URINE ORDERABLES Final Result [facility] [address] [place] [address], [place] [phone] * INFLUENZA A & B (07/25/2024 5:57 PM APPRENTICE ELECTRICIAN) SPECIMEN TYPE SWAB 07/25/2024 6:17 PM APPRENTICE ELECTRICIAN [facility] INFLUENZA A NEGATIVE NEGATIVE 07/25/2024 6:44 PM APPRENTICE ELECTRICIAN [facility] INFLUENZA B NEGATIVE NEGATIVE 07/25/2024 6:44 PM APPRENTICE ELECTRICIAN [facility] Comment: Interpretation: Negative for Influenza [...] NASAL STRUCTURE / Unknown 07/25/2024 5:57 PM APPRENTICE ELECTRICIAN us Janet ROMEO MICROBIOLOGY - GENERAL ORDERAB LES Final Result [facility] [address] [place] [address], [place] [phone] * CORONAVIRUS (COVID 19) (07/25/2024 5:57 PM APPRENTICE ELECTRICIAN) Pathologist [facility] CORONAVIRUS SARS COV 2 RNA NEGATIVE NEGATIVE 07/25/2024 6:43 PM APPRENTICE ELECTRICIAN [facility] Comment: NEGATIVE RESULTS DO NOT [...] SARS-COV-2. SPECIMEN TYPE NASAL 07/25/2024 5:53 PM APPRENTICE ELECTRICIAN [facility] NASAL STRUCTURE / Unknown 07/25/2024 5:57 PM APPRENTICE ELECTRICIAN us Janet ROMEO MICROBIOLOGY - GENERAL ORDERAB LES Final Result [facility] [address] [place] [address], [place] [phone] * (ABNORMAL) COMPREHENSIVE METABOLIC PANEL (07/25/2024 5:57 PM APPRENTICE ELECTRICIAN) [facility] GLUCOSE 99 70 - 99 MG/DL 07/25/2024 6:36 PM APPRENTICE ELECTRICIAN [facility] BUN 11 7 - 18 MG/DL 07/25/2024 6:36 PM APPRENTICE ELECTRICIAN [facility] CREATININE S/P/B 0.80 0.55 - 1.02 MG/DL 07/25/2024 6:36 PM APPRENTICE ELECTRICIAN [facility] SODIUM S/P/B 137 136 - 145 MMOL/L 07/25/2024 6:36 PM APPRENTICE ELECTRICIAN [facility] POTASSIUM S/P/B 3.5 3.5 - 5.1 MMOL/L 07/25/2024 6:36 PM APPRENTICE ELECTRICIAN [facility] CHLORIDE S/P/B 108 97 - 115 MMOL/L 07/25/2024 6:36 PM APPRENTICE ELECTRICIAN [facility] CO2 24.8 21 - 32 MMOL/L 07/25/2024 6:36 PM APPRENTICE ELECTRICIAN [facility] CALCIUM S/P/B 9.3 8.5 - 10.1 MG/DL 07/25/2024 6:36 PM APPRENTICE ELECTRICIAN [facility] BILIRUBIN TOTAL S/P/B 0.6 0.2 - 1.2 MG/DL 07/25/2024 6:36 PM [facility] Comment: THIS ASSAY IS NOT RECOMMENDED FOR PATIENTS UNDERGOING TREATMENT WITH ELTROMBOPAG DUE TO THE POTENTIAL FOR FALSELY ELEVATED RESULTS. TOTAL PROTEIN S/P/B 8.1 6.4 - 8.2 G/DL 07/25/2024 6:36 PM APPRENTICE ELECTRICIAN [facility] ALBUMIN S/P/B 3.7 3.4 - 5.0 G/DL 07/25/2024 6:36 PM APPRENTICE ELECTRICIAN [facility] AST 15 15 - 37 U/L 07/25/2024 6:36 PM [facility] ALT 23 14 - 55 U/L 07/25/2024 6:36 PM [facility] ALKALINE PHOSPHATASE S/P/B 107 50 - 136 U/L 07/25/2024 6:36 PM [facility] ANION GAP 4.2 2 - 10 MMOL/L 07/25/2024 6:36 PM [facility] BUN CREATININE RATIO 13.8 6 - 26 07/25/2024 6:36 PM [facility] A/G RATIO 0.8(L) 1.0 - 2.0 RATIO 07/25/2024 6:36 PM [facility] GFR ESTIMATE 89(L) >90 ML/MIN/1.7 3 M2 07/25/2024 6:36 PM [facility] Comment: NOTE: eGFR is not calculated for patients <18 years of age or gender unknown. This is an estimated GFR calculation using the new CKD EPI creatinine equation without race and so does not require a correction factor for race. This estimated GFR should not be used for calculating drug doses. 07/25/2024 5:57 PM APPRENTICE ELECTRICIAN us Janet ROMEO LABORATORY Final Result [facility] [address] [place] [address], [place] [phone] * (ABNORMAL) CBC W/DIFF AUTOMATED (07/25/2024 5:57 PM APPRENTICE ELECTRICIAN) WBC 5.30 4.5 - 11.0 x10'3/uL 07/25/2024 6:27 PM [facility] RBC 5.86(H) 4.20 - 5.40 x10'6/uL 07/25/2024 6:27 PM [facility] HGB 12.7 12.0 - 16.0 G/DL 07/25/2024 6:27 PM [facility] HCT 41.6 38.0 - 48.0 % 07/25/2024 6:27 PM [facility] MCV 71.0(L) 81.0 - 99.0 FL 07/25/2024 6:27 PM [facility] MCH 21.7(L) 27.0 - 31.0 PG 07/25/2024 6:27 PM [facility] MCHC 30.5(L) 32.0 - 36.0 G/DL 07/25/2024 6:27 PM [facility] RDW 14.5 11.5 - 14.5 % 07/25/2024 6:27 PM [facility] PLT 307 130 - 400 x10'3/uL 07/25/2024 6:27 PM [facility] MPV 9.0(L) 9.3 - 12.2 FL 07/25/2024 6:27 PM [facility] DIFFERENTIAL TYPE AUTOMATED DIFFERENTIAL 07/25/2024 6:41 PM [facility] NEUTROPHILS % 79.0 % 07/25/2024 6:41 PM [facility] LYMPHOCYTES % 14.0 % 07/25/2024 6:41 PM [facility] MONOCYTES % 6.4 % 07/25/2024 6:41 PM [facility] EOSINOPHILS 0.2 % 07/25/2024 6:41 PM APPRENTICE ELECTRICIAN [facility] BASOPHILS 0.2 % 07/25/2024 6:41 PM APPRENTICE ELECTRICIAN [facility] IMMATURE GRANS % 0.2 % 07/25/19 6:41 PM APPRENTICE ELECTRICIAN [facility] ABS. NEUTROPHILS 4.19 1.80 - 7.70 x10'3/uL 07/25/2024 6:41 PM APPRENTICE ELECTRICIAN [facility] ABS. LYMPHOCYTES 0.74(L) 1.00 - 4.80 x10'3/uL 07/25/2024 6:41 PM APPRENTICE ELECTRICIAN [facility] ABS. MONOCYTES 0.34 0.24 - 0.86 x10'3/uL 07/25/2024 6:41 PM APPRENTICE ELECTRICIAN [facility] ABS. EOSINOPHILS 0.01(L) 0.04 - 0.36 x10'3/uL 07/25/2024 6:41 PM [facility] ABS. BASOPHILS 0.01 0.01 - 0.08 x10'3/uL 07/25/2024 6:41 PM APPRENTICE ELECTRICIAN [facility] ABS. IMMATURE GRANULOCYTES 0.01 0.00 - 0.49 x10'3/uL 07/25/2024 6:41 PM [facility] RBC MORPHOLOGY SLIDE REVIEWED 2024 6:41 PM APPRENTICE ELECTRICIAN [facility] HYPOCHROMASIA 1+ 07/25/2024 6:41 PM [facility] MICRO 1+ 07/25/2024 6:41 PM [facility] PLT EST. ADEQUATE 07/25/2024 6:41 PM [facility] 07/25/2024 5:57 PM APPRENTICE ELECTRICIAN us Janet ROMEO LABORATORY Final Result [facility] [address] [place] [address], [place] [phone] documented in this encounter Visit Diagnoses Diagnosis Viral enteritis- Primary Intestinal infection due to other organism, not elsewhere classified documented in this encounter Administered Medications Inactive Administered Medications - up to 3 most recent administrations Medication Order MAR Action Action Date Dose Rate Site dicyclomine (BENTYL) tablet 20 mg 20 mg, Oral, Once, 1 dose, On Tue07/25/24 at 1745 Given 07/25/2024 5:58 PM APPRENTICE ELECTRICIAN 20 mg ketorolac (TORADOL) injection 30 mg 30 mg, Intravenous, Once, 1 dose, On Tue07/25/24 at 1745, For IV administration, give over 15 seconds. Given 07/25/2024 5:59 PM APPRENTICE ELECTRICIAN 30 mg ondansetron (ZOFRAN) injection 4 mg 4 mg, Intravenous, Once, 1 dose, On Tue07/25/24 at 1815, IV push over 2-5 minutes. Given 07/25/2024 6:15 PM APPRENTICE ELECTRICIAN 4 mg sodium chloride 0.9% bolus infusion 1,000 mL 1,000 mL, Intravenous, Administer over 60 Minutes, Once, 1 dose, On Tue07/25/24 at 1815 New Bag 07/25/2024 6:16 PM APPRENTICE ELECTRICIAN 1,000 mLs 1000 mL/hr documented in this encounter Active and Recently Administered Medications Times are shown in APPRENTICE ELECTRICIAN. Scheduled Medication Order 07/23/2024 07/24/2024 07/25/2024 dicyclomine (BENTYL) tablet 20 mg (COMPLETED) 20 mg, Oral, Once, 1 dose, On Tue07/25/24 at 1745 1758 (Given - Provid er: Lavinia Wooten RN) ketorolac (TORADOL) injection 30 mg (COMPLETED) 30 mg, Intravenous, Once, 1 dose, On Tue07/25/24 at 1745, For IV administration, give over 15 seconds. 1759 (Given - Provid er: Lavinia Wooten RN) ondansetron (ZOFRAN) injection 4 mg (COMPLETED) 4 mg, Intravenous, Once, 1 dose, On Tue07/25/24 at 1815, IV push over 2-5 minutes. 1815 (Given - Provid er: Lavinia Wooten RN) sodium chloride 0.9% bolus infusion 1,000 mL (COMPLETED) 1,000 mL, Intravenous, Administer over 60 Minutes, Once, 1 dose, On Tue07/25/24 at 1815 1816 (New Bag - Prov ider: Lavinia Wooten RN)1910 (Infusion Stop Time - Provider: Adina Bear) documented in this encounter Additional Health Concerns Infection Onset Date Last Indicated Resolved Time COVID-19 Rule Out 07/25/2024 07/25/2024 07/25/2024 6:44 PM APPRENTICE ELECTRICIAN documented as of this encounter Care Teams Veterinarian Epidemiologist Relationship Specialty Start Date End Date Bairon Brown MD [facility] [address] [place] [address] PCP - General UNKNOWN PHYSICIAN SPECIALTY 07/25/24 documented as of this encounter
--- OUTSIDE RECORDS SUMMARY | 2024-08-08 03:16 | XMS_ITS | Encounter Summary ---
Author Organization [facility] Address [address] [place] [address]. [place] [address] [place] [address] Care Team Providers Care Appliance Worker Name Role Phone None, Provider MD Primary Care Provider Jaiden lehman Encounter Details Date Type Department Care Team (Latest Contact Info) Description 01/02/2019 11:25 AM CDT - 01/02/2019 11:59 PM CDT Hospital Encounter [facility] [place] [address] Natalie Starks MD Discharge Disposition: Home or [...] Procedure Name Priority Date/Time Associated Diagnosis Comments PATHOLOGY SLIDE CONSULT Routine 01/02/2019 12:00 PM CDT HEMOGLOBIN, GLYCOSYLATED Routine 01/02/2019 12:00 PM CDT Breast screening, unspecified VITAMIN B-12 Routine 01/02/2019 12:00 PM CDT Breast screening, unspecified COMPREHENSIVE METABOLIC PANEL Routine 01/02/2019 12:00 PM CDT Breast screening, unspecified LIPID PANEL Routine 01/02/2019 12:00 PM CDT Breast screening, unspecified CBC, AUTO, NO DIFF Routine 01/02/2019 12 :00 PM CDT Breast screening, unspecified THYROXINE, FREE (FT4) Routine 01/02/2019 12:00 PM CDT Breast screening, unspecified THYROID STIM HORMONE TSH Routine 01/02/2019 12:00 PM CDT Breast screening, unspecified VITAMIN D, 25 OH Routine 01/02/2019 12:0 0 PM CDT Breast screening, unspecified documented in this encounter Results * PATHOLOGY SLIDE CONSULT (01/02/2019 12:00 PM CDT) CBC PATHOLOGIST COMMENT PATHOLOGIST REVIEW ADDED TO REPORT 01/03/2019 4:44 PM CDT [facility] Comment: [id number] MICROCYTOSIS MAY BE DUE TO IRON DEFICIENCY VERSUS THALASEMIA SOME HYPOCHROMIC RBC'S SUGGESTIVE OF IRON DEFICIENCY. ??SUGGEST IRON STUDIES. WBC'S AND PLATELETS UNREMARKABLE. ??AGREE WITH WBC DIFFERENTIAL. REVIEWED BY MARIANO THOMPSON M.D., PATHOLOGIST. 01/02/2019 12:0 0 PM CDT Natalie Starks MD PATHOLOGY/CYTOLOGY ORDERABLES Final Result [facility] [address] [place] [address], * VITAMIN D, 25 OH (01/02/2019 12:00 PM CDT) VITAMIN D 25 HYDROXY S/P/B 36 30 - 100 NG/ML 01/02/2019 1:02 PM CDT [facility] Comment: ? INTERPRETATION ? DEFICIENT ??<20 ? INSUFFICIENT 20-29 ?SUFFICIENT 30-100 01/02/2019 12:0 0 PM CDT Natalie Starks MD LABORATORY Final Result [facility] [address] [place] [address], * VITAMIN B-12 (01/02/2019 12:00 PM CDT) VITAMIN B12 S/P/B 898 254 - 1,320 PG/ML 01/02/2019 1:18 PM CDT [facility] 01/02/2019 12:0 0 PM CDT Natalie Starks MD LABORATORY Final Result Performing Organization Address [facility] Co de Phone Number [facility] [address] [place] [address], [place] [phone] * THYROXINE, FREE (FT4) (01/02/2019 12:00 PM CDT) FREE T4 1.20 0.76 - 1.46 NG/DL 01/02/2019 1:02 PM CDT [facility] 01/02/2019 12:0 0 PM CDT Natalie Starks MD LABORATORY Final Result Performing Organization Address City/[facility]/ZIP Co de Phone Number [facility] [address] [place] [address], * COMPREHENSIVE METABOLIC PANEL (01/02/2019 12:00 PM CDT) GLUCOSE 83 70 - 99 MG/DL 01/02/2019 1:02 PM CDT [facility] BUN 9 7 - 18 MG/DL 01/02/2019 1:02 PM T [facility] CREATININE S/P/B 0.70 0.55 - 1.02 MG/DL 01/02/2019 1:02 PM [facility] SODIUM S/P/B 141 136 - 145 MMOL/L 01/02/2019 1:02 PM T [facility] POTASSIUM S/P/B 4.3 3.5 - 5.1 MMOL/L 01/02/2019 1:02 PM [facility] CHLORIDE S/P/B 107 100 - 108 MMOL/L 01/02/2019 1:02 PM [facility] CO2 28.2 21 - 32 MMOL/L 01/02/2019 1:02 PM [facility] CALCIUM S/P/B 9.7 8.5 - 10.1 MG/DL 01/02/2019 1:02 PM [facility] BILIRUBIN TOTAL S/P/B 0.6 0.2 - 1.2 MG/DL 01/02/2019 1:02 PM [facility] TOTAL PROTEIN S/P/B 8.0 6.4 - 8.2 G/DL 01/02/2019 1:02 PM T [facility] ALBUMIN S/P/B 4.0 3.4 - 5.0 G/DL 01/02/2019 1:02 PM T [facility] AST 17 15 - 37 U/L 01/02/2019 1:02 PM [facility] ALT 30 14 - 55 U/L 01/02/2019 1:02 PM [facility] ALKALINE PHOSPHATASE S/P/B 66 50 - 136 U/L 01/02/2019 1:02 PM [facility] ANION GAP 5.8 5 - 15 MMOL/L 01/02/2019 1:02 PM CDT [facility] BUN CREATININE RATIO 12.8 6 - 26 01/02/2019 1:02 PM CDT [facility] A/G RATIO 1.0 1.0 - 2.0 RATIO 01/02/2019 1:02 PM CDT [facility] EGFR NON-AFR. AMER. >90 >90 ML/MIN/1.7 3 M2 01/02/2019 1:02 PM CDT [facility] EGFR AFR. AMER. >90 >90 ML/MIN/1.7 3 M2 01/02/2019 1:02 PM CDT [facility] Comment: NOTE: eGFR is not calculated for patients <18 years of age. This is an estimated GFR (CKD EPI) and should not be used for calculating drug doses. 01/02/2019 12:0 0 PM CDT Natalie Starks MD LABORATORY Final Result [facility] [address] [place] [address], [place] [phone] * THYROID STIM HORMONE, TSH (01/02/2019 12:00 PM CDT) TSH 2.210 0.358 - 3.74 uIU/ML 01/02/2019 1:02 PM CDT [facility] Comment: HIGH DOSES OF BIOTIN MAY INTERFERE WITH THIS TEST RESULT. CORRELATION TO CLINICAL HISTORY AND PRESENTATION RECOMMENDED. 01/02/2019 12:0 0 PM CDT Natalie Starks MD LABORATORY Final Result [facility] [address] [place] [address], * HEMOGLOBIN, GLYCOSYLATED (01/02/2019 12:00 PM CDT) HGB A1C 5.5 4.2 - 6.3 % 01/02/2019 12:58 PM CDT [facility] Comment: ADA GUIDELINES 2010 5.7 TO 6.4% INCREASED RISK OF DIABETES > OR = 6.5% CONSISTENT WITH DIABETES ESTIMATED AVG GLUCOSE 111 mg/dL 01/02/2019 12:58 PM CDT [facility] 01/02/2019 12:0 0 PM CDT Natalie Starks MD LABORATORY Final Result [facility] [address] [place] [address], * (ABNORMAL) LIPID PANEL (01/02/2019 12:00 PM CDT) CHOLESTEROL 169 <200 MG/DL 01/02/2019 1:02 PM CDT [facility] TRIGLYCERIDES 79 <150 MG/DL 01/02/2019 1:02 PM CDT [facility] HDL 51 >40.0 MG/DL 01/02/2019 1:02 PM CDT [facility] LDL (CALCULATED) 102(H) <100 MG/DL 01/02/2019 1:02 PM CDT [facility] NON HDL CHOLESTEROL 118 <130 MG/DL 01/02/2019 1:02 PM CDT [facility] CHOL/HDL RATIO 3.3 0.0 - 4.5 01/02/2019 1:02 PM CDT [facility] VLDL CALCULATION 16 5 - 55 MG/DL 01/02/2019 1:02 PM CDT [facility] LIPID INTERPRETATION 01/02/2019 1:02 PM CDT [facility] Comment: NIH CONCENSUS REPORT RECOMMENDATIONS: ?ADULT ?CHILD ??LOW RISK: ?CHOLESTEROL ? <200 ? <170 ?TRIGLYCERIDE ?<150 ?--- ?HDL ? >=60 ?--- ?LDL ? <100 ? <110 ??BORDERLINE: ?CHOLESTEROL ? 200-239 ?? 170-199 ?TRIGLYCERIDE ?150-199 ? --- ?HDL ?40-59 ?--- ?LDL ? 100-159 ?? 110-129 ??HIGH RISK: ?CHOLESTEROL ? >=240 ?>=200 ?TRIGLYCERIDE ?>=200 ? --- ?HDL ?<40 ?--- ?LDL ? >=160 ?>=130 01/02/2019 12:0 0 PM CDT Natalie Starks MD LABORATORY Final Result [facility] [address] [place] [address], * (ABNORMAL) CBC, AUTO, NO DIFF (01/02/2019 12:00 PM CDT) WBC 6.7 4.5 - 11.0 x10'3/uL 01/02/2019 12:54 PM CDT [facility] RBC 5.52(H) 4.20 - 5.40 x10'6/uL 01/02/2019 12:54 PM CDT [facility] HGB 12.2 12.0 - 16.0 G/DL 01/02/2019 12:54 PM CDT [facility] HCT 40.6 38.0 - 48.0 % 01/02/2019 12:54 PM CDT [facility] MCV 73.6(L) 81.0 - 99.0 FL 01/02/2019 12:54 PM CDT [facility] MCH 22.1(L) 27.0 - 31.0 PG 01/02/2019 12:54 PM CDT [facility] MCHC 30.0(L) 32.0 - 36.0 G/DL 01/02/2019 12:54 PM CDT [facility] RDW 14.5 11.5 - 14.5 % 01/02/2019 12:54 PM CDT [facility] PLT 293 130 - 400 x10'3/uL 01/02/2019 12:54 PM CDT [facility] MPV 8.7(L) 9.3 - 12.2 FL 01/02/2019 12:54 PM CDT [facility] RBC MORPHOLOGY SLIDE REVIEWED 01/02/2019 12:57 PM CDT [facility] POIKLO 1+ 01/02/2019 12:57 PM CDT [facility] PLT EST. ADEQUATE 01/02/2019 12:57 PM CDT [facility] 01/02/2019 12:0 0 PM CDT us Natalie Starks MD LABORATORY Final Result [facility] [address] [place] [address], [place] [phone] documented in this encounter Visit Diagnoses Diagnosis Breast screening, unspecified documented in this encounter Care Teams Appliance Worker Relationship Specialty Start Date End Date None, Provider, PCP - General 01/02/19 06/21/19 documented as of this encounter
--- OUTSIDE RECORDS SUMMARY | 2024-08-08 03:16 | XMS_ITS | Encounter Summary ---
Author Organization [facility] Address [address] [place] [address]. [place] [address] [place] [address] Care Team Providers Care Scientific Database Curator Name Role Phone None, Provider Primary Care Provider Jaiden lehman Encounter Details Date Type Department Care Team (Late st Contact Info) Description 01/02/2019 Orders Only [facility] [place], [place] [id number] Natalie Starks MD Social History Tobacco Use Types Packs/Day Years Used Date Smoking Tobacco: Never Assessed Comments Unknown Sex and Gender Information Value Date Recorded Sex Assigned at Not on file Legal Sex Female 8:14 AM CDT Gender Identity Not on file Sexual Orientation Not on file documented as of this encounter Plan of Treatment Not on file documented as of this encounter Results * VITAMIN D, 25 OH (01/02/2019 12:00 PM CDT) VITAMIN D 25 HYDROXY S/P/B 36 30 - 100 NG/ML 01/02/2019 1:02 PM CDT [facility] Comment: ? INTERPRETATION ? DEFICIENT ??<20 ? INSUFFICIENT 20-29 ?SUFFICIENT 30-100 01/02/2019 12:0 0 PM CDT Natalie Starks MD LABORATORY Final Result [facility] [address] [place] [address], * VITAMIN B-12 (01/02/2019 12:00 PM CDT) VITAMIN B12 S/P/B 898 254 - 1,320 PG/ML 01/02/2019 1:18 PM CDT [facility] 01/02/2019 12:0 0 PM CDT Natalie Starks MD LABORATORY Final Result Performing Organization Address City/[facility]/ZIP Co de Phone Number [facility] [address] [place] [address], * THYROXINE, FREE (FT4) (01/02/2019 12:00 PM CDT) FREE T4 1.20 0.76 - 1.46 NG/DL 01/02/2019 1:02 PM CDT [facility] 01/02/2019 12:0 0 PM CDT Natalie Starks MD LABORATORY Final Result Performing Organization Address City/[facility]/ZIP Co de Phone Number [facility] [address] [place] [address], [place] [phone] * COMPREHENSIVE METABOLIC PANEL (01/02/2019 12:00 PM CDT) GLUCOSE 83 70 - 99 MG/DL 01/02/2019 1:02 PM CDT [facility] BUN 9 7 - 18 MG/DL 01/02/2019 1:02 PM CDT [facility] CREATININE S/P/B 0.70 0.55 - 1.02 MG/DL 01/02/2019 1:02 PM [facility] SODIUM S/P/B 141 136 - 145 MMOL/L 01/02/2019 1:02 PM [facility] POTASSIUM S/P/B 4.3 3.5 - 5.1 MMOL/L 01/02/2019 1:02 PM [facility] CHLORIDE S/P/B 107 100 - 108 MMOL/L 01/02/2019 1:02 PM T [facility] CO2 28.2 21 - 32 MMOL/L 01/02/2019 1:02 PM [facility] CALCIUM S/P/B 9.7 8.5 - 10.1 MG/DL 01/02/2019 1:02 PM [facility] BILIRUBIN TOTAL S/P/B 0.6 0.2 - 1.2 MG/DL 01/02/2019 1:02 PM T [facility] TOTAL PROTEIN S/P/B 8.0 6.4 - 8.2 G/DL 01/02/2019 1:02 PM [facility] ALBUMIN S/P/B 4.0 3.4 - 5.0 G/DL 01/02/2019 1:02 PM [facility] AST 17 15 - 37 U/L 01/02/2019 1:02 PM [facility] ALT 30 14 - 55 U/L 01/02/2019 1:02 PM [facility] ALKALINE PHOSPHATASE S/P/B 66 50 - 136 U/L 01/02/2019 1:02 PM [facility] ANION GAP 5.8 5 - 15 MMOL/L 01/02/2019 1:02 PM [facility] BUN CREATININE RATIO 12.8 6 - 26 01/02/2019 1:02 PM [facility] A/G RATIO 1.0 1.0 - 2.0 RATIO 01/02/2019 1:02 PM CDT [facility] EGFR NON-AFR. AMER. >90 >90 ML/MIN/1.7 3 M2 01/02/2019 1:02 PM CDT [facility] EGFR AFR. AMER. >90 >90 ML/MIN/1.7 3 M2 01/02/2019 1:02 PM CDT [facility] Comment: NOTE: eGFR is not calculated for patients <18 years of age. This is an estimated GFR (CKD EPI) and should not be used for calculating drug doses. 01/02/2019 12:0 0 PM CDT Natalie Starks MD LABORATORY Final Result Performing Organization Address City/[facility]/ZIP Co de Phone Number [facility] [address] [place] [address], * THYROID STIM HORMONE, TSH (01/02/2019 12:00 PM CDT) TSH 2.210 0.358 - 3.74 uIU/ML 01/02/2019 1:02 PM CDT [facility] Comment: HIGH DOSES OF BIOTIN MAY INTERFERE WITH THIS TEST RESULT. CORRELATION TO CLINICAL HISTORY AND PRESENTATION RECOMMENDED. 01/02/2019 12:0 0 PM CDT Natalie Starks MD LABORATORY Final Result [facility] [address] [place] [address], * HEMOGLOBIN, GLYCOSYLATED (01/02/2019 12:00 PM CDT) HGB A1C 5.5 4.2 - 6.3 % 01/02/2019 12:58 PM CDT [facility] Comment: ADA GUIDELINES 2010 5.7 TO 6.4% INCREASED RISK OF DIABETES > OR = 6.5% CONSISTENT WITH DIABETES ESTIMATED AVG GLUCOSE 111 mg/dL 01/02/2019 12:58 PM CDT [facility] 01/02/2019 12:0 0 PM CDT Natalie Starks MD LABORATORY Final Result [facility] [address] [place] [address], * (ABNORMAL) LIPID PANEL (01/02/2019 12:00 PM CDT) CHOLESTEROL 169 <200 MG/DL 01/02/2019 1:02 PM CDT [facility] TRIGLYCERIDES 79 <150 MG/DL 01/02/2019 1:02 PM CDT [facility] HDL 51 >40.0 MG/DL 01/02/2019 1:02 PM CDT [facility] LDL (CALCULATED) 102(H) <100 MG/DL 01/02/2019 1:02 PM CDT [facility] NON HDL CHOLESTEROL 118 <130 MG/DL 01/02/2019 1:02 PM CDT [facility] CHOL/HDL RATIO 3.3 0.0 - 4.5 01/02/2019 1:02 PM CDT [facility] VLDL CALCULATION 16 5 - 55 MG/DL 01/02/2019 1:02 PM CDT [facility] LIPID INTERPRETATION 01/02/2019 1:02 PM CDT [facility] Comment: NIH CONCENSUS REPORT RECOMMENDATIONS: ?ADULT [...] >=160 ?>=130 01/02/2019 12:0 0 PM CDT us Natalie Starks MD LABORATORY Final Result Performing Organization Address [facility]/State/ZIP Co de Phone Number [facility] [address] [place] [address], [place] [phone] * (ABNORMAL) CBC, AUTO, NO DIFF (01/02/2019 12:00 PM CDT) WBC 6.7 4.5 - 11.0 x10'3/uL 01/02/2019 12:54 PM CDT [facility] RBC 5.52(H) 4.20 - 5.40 x10'6/uL 01/02/2019 12:54 PM CDT [facility] HGB 12.2 12.0 - 16.0 G/DL 01/02/2019 12:54 PM CDT [facility] HCT 40.6 38.0 - 48.0 % 01/02/2019 12:54 PM CDT [facility] MCV 73.6(L) 81.0 - 99.0 FL 01/02/2019 12:54 PM CDT [facility] MCH 22.1(L) 27.0 - 31.0 PG 01/02/2019 12:54 PM CDT [facility] MCHC 30.0(L) 32.0 - 36.0 G/DL 01/02/2019 12:54 PM CDT [facility] RDW 14.5 11.5 - 14.5 % 01/02/2019 12:54 PM CDT [facility] PLT 293 130 - 400 x10'3/uL 01/02/2019 12:54 PM CDT [facility] MPV 8.7(L) 9.3 - 12.2 FL 01/02/2019 12:54 PM CDT [facility] RBC MORPHOLOGY SLIDE REVIEWED 01/02/2019 12:57 PM CDT [facility] POIKLO 1+ 01/02/2019 12:57 PM CDT [facility] PLT EST. ADEQUATE 01/02/2019 12:57 PM T [facility] 01/02/2019 12:0 0 PM CDT Natalie Starks MD LABORATORY Final Result [facility] [address] [place] [address], [place] [phone] documented in this encounter Visit Diagnoses Diagnosis Breast screening, unspecified- Primary documented in this encounter Care Teams Scientific Database Curator Relationship Specialty Start Date End Date None, Provider, PCP - General 01/02/19 06/21/19 documented as of this encounter
--- OUTSIDE RECORDS SUMMARY | 2024-08-08 03:16 | XMS_ITS | Encounter Summary ---
Author Organization [facility] Address [address] [place] [address]. [place] [address] [place] [address] Care Team Providers Care Farmworker Poultry Name Role Phone None, Provider MD Primary Care Provider Unavaila ble Reason for Referral * Imaging (Routine) - Closed Specialty Diagnoses / Procedures Referred By Contac t Referred To Contact RADIOLOGY Diagnoses Breast lump Procedures US BREAST RT BIRAD [facility] Rimma Avila MD [address] [place] [address] Phone: tel: fax: Referral ID Status Reason Start Date Expiration Date Visits Re quested Visits Authorized [id number] Closed 01/02/2019 02/01/2020 1 1 Encounter Details Date Type Department Care Team (Late st Contact Info) Description 01/16/2019 7:59 AM CDT - 01/16/2019 11:59 PM CDT Hospital Encounter [facility] Mammography [address] [place] [address] Rimma Avila MD [address] [place] [address] Discharge Disposition: Home or Self Care (Routine [...] Comments US BREAST RT BIRAD LTD Routine 01/16/2019 9:08 AM CDT Breast lump MG EDIS FLAHERTY BILRHEA DIGI Routine 01/16/2019 8:52 AM CDT Breast lump documented in this encounter Results * US BREAST RT BIRAD LTD (01/16/2019 9:08 AM CDT) Anatomical Region Laterality Modality Breast Right Ultrasound 01/16/2019 9:29 AM CDT Impressions 01/16/2019 9:32 AM CDT ===== IMPRESSION: ===== 1. ??Complex cyst in the right breast at 12:00 position. Assessment: ACR BI-RADS Category 3 - Probably benign. Recommendation: 1: Ultrasound ??right ??in 6 months ? Examination: Breast ultrasound Findings: See combined report above. Comments: Follow-up ultrasound in 6 months of right breast complex cyst is recommended. Although this was not seen on mammogram, additional diagnostic mammogram requisition is recommended in case further imaging is needed at time of follow-up. Narrative 01/16/2019 9:32 AM CDT Examination: Bilateral diagnostic mammogram and ultrasound of the right breast. [id number] Exam Date/Time: 01/16/2019 8:27 AM Clinical history: No prior breast procedures. Family history of breast cancer in a sister at age 48. No personal history of breast cancer. Right-sided palpable lump for 2 months. Comparison: None. Today is also establishment of baseline. Technique: Digital bilateral diagnostic mammography and ultrasound of the right breast was performed. ??This study was read with the assistance of a computer-aided detection system. Tissue density: The breast tissue is extremely dense. Findings: Benign bilateral axillary lymph nodes. The breast tissue is diffusely dense bilaterally. No underlying mass is identified on tomographic views. No abnormal calcifications or areas of skin thickening are noted. There is no mammographic abnormality underlying the palpable abnormality marker. On subsequent ultrasound evaluation of the concern in the right breast at 1:00 position 5 cm the nipple is seen only normal density tissue. No abnormal cystic or masslike lesions are seen in this region. Nearby at the 12:00 position 4 cm from the nipple is a 9 x 4 x 7 mm, wider than tall, hypoechoic lesion with fairly well-defined borders and posterior acoustic enhancement. Minimal internal echoes are noted making this a complex cyst. us Rimma Avila MD ULTRASOUND Final Res ult documented in this encounter Visit Diagnoses Diagnosis Breast lump Lump or mass in breast documented in this encounter Care Teams Farmworker Poultry Relationship Specialty Start Date End Date None, Provider, PCP - General 01/02/19 06/21/19 documented as of this encounter
--- OUTSIDE RECORDS SUMMARY | 2024-08-08 03:18 | XMS_ITS | Encounter Summary ---
Author Organization [facility] Address [address] [place] [address] Care Team Providers Care Admin Asst Name Role Phone Unavailable Primary Care Provider Unavailabl e Encounter Details Date Type Department Care Team (Late st Contact Info) Description 02/25/2021 Orders Only [facility] Pre Procedure Viral Testing Luana [address] [place] [phone] [place] [address] [facility] [address] [place] [address] Cough (Primary Dx); Nasal congestion Social History Tobacco Use Types Packs/Day Years Used Date Smoking Tobacco: Never Smokeless Tobacco: Never Alcohol Use Standard Drinks/Week Comments Yes 0 (1 standard drink = 0.6 oz pur e alcohol) rarely Comments No Sex and Gender Information Value Date Recorded Sex Assigned at Not on file Legal Sex Female 11:26 AM CDT Gender Identity Not on file Sexual Orientation Not on file documented as of this encounter Plan of Treatment Not on file documented as of this encounter Visit Diagnoses Diagnosis Cough- Primary Nasal congestion Other diseases of nasal cavity and sinuses documented in this encounter Additional Health Concerns Infection Onset Date Last Indicated Resolved Time R/O COVID-19 02/25/2021 02/25/2021 03/04/2021 1:18 AM CDT documented as of this encounter
--- OUTSIDE RECORDS SUMMARY | 2024-08-08 03:18 | XMS_ITS | Clinical Summary ---
Author Organization [facility] [place] Address [address] [place] [address] Phone Care Team Providers Care Unscrambler Name Role Phone Unavailable Primary Care Provider Unavailabl e Allergies No known active allergies Medications multivitamin (DAILY-MARTHA) tablet Take 1 Tablet by mouth daily. Active ergocalciferol, vitamin D2, (VITAMIN D ORAL) Take by mouth. Active POTASSIUM CITRATE ORAL Take by mouth. Active IRON ORAL Take by mouth. Active Active Problems Patient Care Coordination No te Formatting of this note migh t be different from the original. Primary Care: No primary care provider on file. Referring Provider: No referring provider defined for this encounter. Other: No known active problems Family History Medical History Relation Name Comments Other Mother lupus Breast Cancer Sister Relation Name Status Comments Mother Sister Alive Social History Tobacco Use Types Packs/Day Years [...] Sign Reading Time Taken Comments Blood Pressure 107/71 02/06/2019 2:19 PM CDT Pulse 64 02/06/2019 2:19 PM CDT Temperature - - Respiratory Rate - - Oxygen Saturation - - Inhaled Oxygen Concentration - - Weight 55.2 kg (121 lb 12.8 oz) 02/06/2019 2:19 PM CDT Height 152.4 cm (5') 02/06/2019 2:19 PM CDT Body Mass Index 23.79 02/06/2019 2:19 PM CDT Plan of Treatment Health Maintenance Due Date Last Done Comments DTAP/TDAP/TD VACCINES (1 - Tdap) 1992 HEPATITIS B VACCINES (1 of 3 - 19+ 3-dose series) 1992 CERVICAL CANCER SCREENING 2003 COLORECTAL SCREENING 2018 Colorectal Cancer Screening 2018 FIT-DNA Q 3 years 2018 FIT/FOBT Q 1 year 2018 Flex Sig/CT Colonography Q 5 years 2018 BREAST CANCER SCREENING 01/17/2020 01/16/2019 ZOSTER VACCINE (1 of 2) 2023 INFLUENZA VACCINE (#1) 2024 PNEUMOCOCCAL VACCINE 0-64 YEARS Aged Out No longer eligible based on patient's age to complete this topic Procedures Procedure Name Priority Date/Time Associated Diagnosis Comments MAMMO DIAG BILAT 3D KRYSTINA W O R WO CAD Routine 01/16/2019 from Last 3 Months or Most Recently Relevant to Health Maintenance Results * MAMMO DIAG BILAT 3D KRYSTINA W OR WO CAD (01/16/2019) Anatomical Region Laterality Modality Breast Bilateral Other us Rimma Avila MD MAMMO ORDERABLES Edited R esult - Final from Last 3 Months or Most Recently Relevant to Health [place] [address] [employer] BLUE ACCESS/TRUE BLUE PPO
--- OUTSIDE RECORDS SUMMARY | 2024-08-08 03:18 | XMS_ITS | Encounter Summary ---
Author Organization [facility] Address [address] [place] [address] Care Team Providers Care [employer] Division Manager Name Role Phone Unavailable Primary Care Provider Unavailabl e Encounter Details Date Type Department Care Team (Latest Contact Info) Description 01/16/2019 10:40 AM CDT - 01/16/2019 11:59 PM CDT Hospital Encounter [facility] [place] [address] [place] [address] [facility], External Provider [address] [place] [address] Discharge Disposition: Home or Self Care Social History Tobacco Use Types Packs/Day Years [...] Name Priority Date/Time Associated Diagnosis Comments MAMMO PRIOR STUDY Routine 01/16/2019 10: 40 AM CDT Follow up documented in this encounter Results * MAMMO PRIOR STUDY (01/16/2019 10:40 AM CDT) Narrative 02/12/2019 10:32 AM CDT This exam was auto finalized to allow images to be scanned to PACS. External Provider [facility] DIAGNOSTIC IMAGING ORDER SHELBI Final Result documented in this encounter Visit Diagnoses Diagnosis Follow up documented in this encounter
--- OUTSIDE RECORDS SUMMARY | 2024-08-08 03:18 | XMS_ITS | Encounter Summary ---
Author Organization [facility] Address [address] [place] [address] Care Team Providers Care Cfo Name Role Phone Unavailable Primary Care Provider Unavailabl e Reason for Visit * Reason Comments Breast Mass right breast Encounter Details Date Type Department Care Team ([facility] st Contact Info) Description 02/06/2019 1:45 PM CDT Office Visit [facility] BREAST SURGERY - [place] [id number] [facility] [address] [place] [address] Chanell Bai MD [address] [facility] [address] [place] [address] Abnormal mammogram (Primary Dx) Social History Tobacco Use Types Packs/Day Years [...] Mass Index 23.79 02/06/2019 2:19 PM CDT documented in this encounter Progress Notes * Chanell Bai MD - 02/06/2019 2:19 PM CDT PATIENT: Aileen Frost : 1975 DATE: 02/06/2019 Aileen Frost is a 43 y.o. female. She is referred by Dr Natalie Starks because of abnormal screening mammogram and subsequent breast ultrasound that showed a complex cystic mass. She has no complaints referable to her breasts. She denies prior breast surgeries or biopsies. She is 3, para 3. She was 10 at menarche and 19 at first live . Her 47-year-old sister is currently undergoingbreast cancer treatment-no genetic testing results known. She works full-time as as a dry cleaning manager. She is single. 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 PSH: No past surgical history on file. ALLERGY: No Known Allergies MEDS: Current Outpatient Medications Medication Sig Dispense Refill ??? multivitamin (DAILY-MARTHA) tablet Take 1 Tablet by mouth daily. ??? ergocalciferol, vitamin D2, (VITAMIN D ORAL) Take by mouth. ??? POTASSIUM CITRATE ORAL Take by mouth. ??? IRON ORAL Take by mouth. No current facility-administered medications for this visit. FHX: Family History Problem Relation Name Age of Onset ??? Breast Cancer Sister 47 SOC: Social History Socioeconomic History ??? Marital status: Single Spouse name: Not on file ??? Number of children: 3 ??? Years of education: Not on file ??? Highest education level: Not on file Occupational History ??? Not on file Social Needs ??? Financial resource strain: Not on file ??? Food insecurity: Worry: Not on file Inability: Not on file ??? Transportation needs: Medical: Not on file Non-medical: Not on file Tobacco Use ??? Smoking status: Never Smoker ??? Smokeless tobacco: Never Used Substance and Sexual Activity ??? Alcohol use: Yes Comment: rarely ??? Drug use: Never ??? Sexual activity: Not on file Lifestyle ??? Physical activity: Days per week: Not on file Minutes per session: Not on file ??? Stress: Not on file Relationships ??? Social connections: Talks on phone: Not on file Gets together: Not on file Attends catholic service: Not on file Active member of club or organization: Not on file Attends meetings of clubs or organizations: Not on file Relationship status: Not on file ??? Intimate partner violence: Fear of current or ex partner: Not on file Emotionally abused: Not on file Physically abused: Not on file Forced sexual activity: Not on file Other Topics Concern ??? Not on file Social History Narrative ??? Not on file ROS: Unremarkable Constitutional: Negative for fever, weight loss and malaise/fatigue. Respiratory: Negative for cough. Cardiovascular: Negative for chest pain and leg swelling. Gastrointestinal:. Negative for abdominal pain. Genitourinary: Negative for dysuria. Musculoskeletal: Negative for myalgias and joint pain. Skin: Negative for rash. Neurological: Negative for dizziness and headaches. Psychiatric/Behavioral: Negative for depression Endocrine: Negative for diabetes, negative for thyroid dysfunction Hematologic: Negative for anemia, bleeding disorders, HIV/AIDS BP 107/71 Pulse 64 Ht 5' (1.524 m) Wt 55.2 kg (121 lb 12.8 oz) LMP 01/16/2019 ? No BMI 23.79 kg/m?? PHYSICAL EXAM: Physical Exam Constitutional: She is oriented to person, place, and time and well-developed, well-nourished, and in no distress. No distress. HENT: Head: Normocephalic and atraumatic. Eyes: Pupils are equal, round, and reactive to light. No scleral icterus. Neck: Normal range of motion. No tracheal deviation present. No thyromegaly present. Cardiovascular: Normal rate and regular rhythm. Pulmonary/Chest: Effort normal and breath sounds normal. No respiratory distress. She has no wheezes. Abdominal: Soft. She exhibits no distension. There is no tenderness. Musculoskeletal: Normal range of motion. She exhibits no deformity. Lymphadenopathy: She has no cervical adenopathy. Neurological: She is alert and oriented to person, place, and time. Gait normal. Skin: Skin is warm and dry. Psychiatric: Mood, affect and judgment normal. Vitals reviewed. Axilla-there is no adenopathy Breasts -nipples are everted. There are no dominant masses Right breast:normal in appearance, no masses, skin changes or nipple discharge Left breast: normal in appearance, no masses, skin changes or nipple discharge IMAGING: films are reviewed. Mammogram: January 16, 2019. At [facility] in [place], [place]. There are no masses or calcifications Right breast ultrasound: January 16, 2019. At [facility] in [place], [place]. There is a 9 mmcomplex cystic mass at 12:00 IMPRESSION /PLAN: 43 y.o. -[place] woman who presents with abnormal screening right mammogram Her sister was diagnosed with breast cancer at the age of 47 Her calculated demetris risk is 1.4 % at 5 years and 14.4 % lifetime I have personally examined her and have reviewed her mammogram and breast ultrasound today The breast imaging findings suggested complex cystic mass The findings appear benign and I agree with short-term follow-up to document stability I reviewed the results with her and she is reassured I will see her back in 6 months with right diagnostic mammogram and right breast ultrasound If stable she will resume yearly screening mammography in December 2019 More than 50% of today's office visit time was spent in [id number] discussion and coordination ofcare All of her questions are answered today to her satisfaction TOBACCO COUNSELING She is not a tobacco user. Chanell Bai MD.FACS. cc: No referring provider defined for this encounter. documented in this encounter Plan of Treatment Not on file documented as of this encounter Visit Diagnoses Diagnosis Abnormal mammogram- Primary Abnormal mammogram, unspecified documented in this encounter
--- OUTSIDE RECORDS SUMMARY | 2024-08-08 03:18 | XMS_ITS | Encounter Summary ---
Author Organization [facility] Address [address] [place] [address] Care Team Providers Care Information Technology Data Analyst Name Role Phone Unavailable Primary Care Provider Unavailabl e Encounter Details Date Type Department Care Team (Late st Contact Info) Description 02/06/2019 Orders Only [facility] BREAST SURGERY - [place] [address] [place] [address] [place] [address] Chanell Bai MD [address] [facility] [address] [place] [address] Breast mass, right (Primary Dx) Social History Tobacco Use Types [...] W O R WO CAD Routine 01/16/2019 documented in this encounter Results * MAMMO DIAG BILAT 3D KRYSTINA W OR WO CAD (01/16/2019) Anatomical Region Laterality Modality Breast Bilateral Other us Rimma Avila MD MAMMO ORDERABLES Edited R esult - Final documented in this encounter Visit Diagnoses Diagnosis Breast mass, right- Primary Lump or mass in breast documented in this encounter
--- OUTSIDE RECORDS SUMMARY | 2024-08-08 03:19 | XMS_ITS | Encounter Summary ---
Author Organization [facility] Address [address] [place] [address] Care Team Providers Care Spindle Sander Name Role Phone Unavailable Primary Care Provider Unavailabl e Encounter Details Date Type Department Care Team (Latest Contact Info) Description 01/16/2019 10:35 AM CDT - 01/16/2019 11:59 PM CDT Hospital Encounter [facility] [place] [address] [place] [address] [facility], External Provider [address] [place] [address] Discharge Disposition: Home or Self Care Social [...] Comments MAMMO PRIOR STUDY Routine 01/16/2019 10: 35 AM CDT Follow up documented in this encounter Results * MAMMO PRIOR STUDY (01/16/2019 10:35 AM CDT) Narrative 02/12/2019 10:32 AM CDT This exam was auto finalized to allow images to be scanned to PACS. External Provider [facility] DIAGNOSTIC IMAGING ORDER SHELBI Final Result documented in this encounter Visit Diagnoses Diagnosis Follow up documented in this encounter
[2024-10-19 12:48] VITALS: BMI 26.6
--- OUTSIDE RECORDS SUMMARY | 2024-10-30 00:10 | XMS_ITS | Clinical Summary ---
Author Organization [facility] Address [address] [place] [id number] Care Team Providers Care Lamination Spinner Name Role Phone Bairon Brown MD Primary Care Provider [phone] Allergies No known active allergies Medications ondansetron (ZOFRAN-ODT) 4 MG disintegrating tablet Take 1 tablet (4 mg total) by mouth every 8 (eight) hours as needed for Nausea. 12 tablet 5 Active Family History Medical History Relation Comments Breast [...] Comments Blood Pressure 136/80 07/25/2024 10:00 PM LODGE SALES ASSOCIATE Pulse 79 07/25/2024 10:00 PM LODGE SALES ASSOCIATE Temperature 36.8 C (98.3 F) 07/25/2024 5:37 PM LODGE SALES ASSOCIATE Respiratory Rate 16 07/25/2024 10:00 PM LODGE SALES ASSOCIATE Oxygen Saturation 99% 07/25/2024 10:00 PM LODGE SALES ASSOCIATE Inhaled Oxygen Concentration - - Weight 65.4 kg (144 lb 2.9 oz) 07/25/2024 5:37 P M LODGE SALES ASSOCIATE Height 152.4 cm (5') 07/25/2024 5:37 PM LODGE SALES ASSOCIATE Body Mass Index 28.16 07/25/2024 5:37 PM LODGE SALES ASSOCIATE Plan of Treatment Health Maintenance Due Date [...] 12/25/2020, 08/13/2020, Additional history exists COVID-19 Vaccine ( season) 2024 03/14/2021, 02/15/2021 Meningococcal B Vaccine Aged Out No l onger eligible based on patient's age to complete this topic Meningococcal Vaccine Aged Out No leonor edgardo [...] KRYSTINA BILAT DIGI Routine 06/29/2021 2:46 PM LODGE SALES ASSOCIATE Abnormal mammogram from Last 3 Months or Most Recently Relevant to Health Maintenance Results * MG DIAG W KRYSTINA BILAT DIGI (06/29/2021 2:46 PM LODGE SALES ASSOCIATE) Anatomical Region Laterality Modality Breast Bilateral Mammography 06/29/2021 2:54 PM LODGE SALES ASSOCIATE Impressions 06/29/2021 2:58 PM LODGE SALES ASSOCIATE ===== IMPRESSION: ===== 1. Evidence of prior biopsy with no findings in either breast to suggest malignancy Assessment: ACR BI-RADS 2 - BENIGN FINDING(S) Recommendation: 1:Routine Screening Bilateral Comments: Continued annual bilateral screening mammography recommended. Additional bilateral 6 month follow-ups of the breasts by MRI recommended previously. Ordered By: ESTUARDO CONTI Interpreted By: Terence Orellana MD, 06/29/2021 2:54 PM Narrative 06/29/2021 2:58 PM LODGE SALES ASSOCIATE Examination: Digital bilateral diagnostic mammogram with 3-D tomography Exam Date/Time: 06/29/2021 2:31 PM Reason For Exam: F/U 3 month follow-up for benign biopsy in [...] dense, which may obscure small masses. Findings: Area of biopsy in the medial right breast [...] in either breast to suggest malignancy. Estuardo Conti MD MAMMO Final Result from Last 3 Months or Most Recently Relevant to Health Maintenance Insurance [address] [address] Care Teams Lamination Spinner Relationship Specialty Start Date End Date Bairon Brown MD [facility] [address] [facility] [address] [place] [address] PCP - General UNKNOWN PHYSICIAN SPECIALTY 07/25/24
--- OUTSIDE RECORDS SUMMARY | 2024-10-30 00:10 | XMS_ITS | Clinical Summary ---
Author Organization [facility] [place] Address [address] [place] [address] Phone Care Team Providers Care Commercial Coordinator Name Role Phone Unavailable Primary Care Provider [...] of 3 - 19+ 3-dose series) 1992 HPV/Cotest (21-29) 1994 PAP SMEAR 1994 CERVICAL CANCER SCREENING 2003 HPV/Cotest (30-65) 2003 PAP SMEAR 2003 COLORECTAL SCREENING 2018 Colorectal Cancer Screening 2018 FIT-DNA Q 3 years 2018 FIT/FOBT Q 1 year 2018 Flex Sig/CT Colonography Q 5 years 2018 BREAST CANCER SCREENING 01/17/2020 01/16/2019 ZOSTER VACCINE (1 of 2) 2023 INFLUENZA VACCINE (#1) 2024 PNEUMOCOCCAL VACCINE 0-49 YEARS Aged Out No longer eligible based on patient's age to complete this topic Procedures Procedure Name Priority Date/Time Associated Diagnosis Comments MAMMO 3D KRYSTINA DIAGNOSTIC TRAV AT W OR WO CAD Routine 01/16/2019 from Last 3 Months or Most Recently Relevant to Health Maintenance Results * MAMMO DIAG BILAT 3D KRYSTINA W OR WO CAD (01/16/2019) Anatomical Region Laterality Modality Breast Bilateral Mammography us Rimma Avila MD MAMMO ORDERABLES Edited R esult - Final from Last 3 Months or Most Recently Relevant to [place] [address] [facility] BLUE ACCESS/TRUE BLUE PPO
[2024-10-30 10:22] VITALS: BP 133/79; PULSE 70; RESP 20; TEMP 35.9; O2SAT 100; BMI 23.2
[2024-10-30] MEDS: LACTATED RINGERS 1,000 ML 150 ML IV CONT (10:33)
--- NOTE | 2024-10-30 10:47 | PM.HPGS ---
History of Present Illness History of Present Illness Consent: Risks, benefits, and alternatives have been discussed and questions answered. Patient agrees to proceed with procedure. Chief complaint: Screening colon Narrative: Aileen Frost is a 49 year old female here for first screening colonoscopy Review of Systems Review of Systems: All systems reviewed & are unremarkable except as noted in HPI and below PMFSH Past Medical History Medical History Abnormal mammogram of right breast Acid reflux Anemia Anxiety Surgical History Surgical History Status post right breast biopsy Family History Family History Sibling Breast cancer Father Hypertension Mother Hypertension Hypercholesterolemia Social History Social History Smoking status: Never smoker Alcohol intake: current Drinks per week: 7 Alcohol use details: 1 Glass of wine a night Substance use: never Substance use type: does not use Lack of Transportation: No Lack of Food: Never True Current Housing: I Have Housing Concerned About Future Housing: No Difficulty Paying Gas/Electric Bills: No Difficulty Paying for Meds: No Currently Unemployed: No Education: Bachelor's Degree Living arrangements: with family Additional living arrangements comments: with son Occupation/Education: occupation Gender identity (if verbalized by the patient): Female Sexual Orientation (if Verbalized by the Patient): Straight or Heterosexual Spiritual care concerns: No Meds Home Medications and Allergies Home Medications ?Medication ?Instructions ?Recorded ?Confirmed ?Type multivitamin (Daily Multi-Vitamin 1 tablet PO DAILY 02/06/21 10/30/24 History tablet) Cymbalta 60 mg capsule,delayed 60 mg PO DAILY #90 caps 04/25/24 10/30/24 Rx release (duloxetine) duloxetine 60 mg capsule,delayed 60 mg PO DAILY #90 caps 05/15/24 10/30/24 Rx release Allergies Allergy/AdvReac Type Severity Reaction Status Date / Time No Known Allergies Allergy Verified 10/30/24 10:20 Vital Signs Vital Signs - 24 hr 10/30/24 10:22 Temperature 96.6 F L Pulse Rate 70 Respiratory Rate 20 Blood Pressure 133/79 Pulse Oximetry 100 Oxygen Delivery Room Air Exam Const: General: comfortable and no acute distress HENMT: Face/Nose/Sinus: Normal nares present Eyes: General: appearance normal, both eyes and all related structures Neck: Neck: no JVD Resp: Auscultation: clear to auscultation bilaterally Cardio: Rate: regular rate Rhythm: regular rhythm GI: Inspection: non-distended GI Palp: Yes Soft to palpation Skin: General skin exam: normal color Neuro: General: gait normal Speech: normal speech Extrem: General: normal to inspection Psych: Mental Status: mental status grossly normal Assessment and Plan Assessment and plan (1) Colon cancer screening: Code(s): Z12.11 - Encounter for screening for malignant neoplasm of colon Status: Acute Assessment and Plan: colonoscopy
--- NOTE | 2024-10-30 10:54 | WPDANESEPPF ---
Anes - Initial Pre Proc Eval Procedure: Operation Date: 10/30/24 11:30 Proposed Procedures p Screening Colonoscopy - Derik Meeks MD Date/Time: 10/30/24 10:54 Surgeon: Derik Meeks MD Pre Op Diagnosis: Screening colon Patient Data Age: 49 Gender: F Height: 1.55 m Weight: 55.8 kg Last Vital Signs Temp 35.9 C L 10/30/24 10:22 Pulse 70 10/30/24 10:22 Resp 20 10/30/24 10:22 BP 133/79 10/30/24 10:22 Pulse Ox 100 10/30/24 10:22 O2 Del Method Room Air 10/30/24 10:22 Allergies Allergy/AdvReac Type Severity Reaction Status Date / Time No Known Allergies Allergy Verified 10/30/24 10:20 Home Medications ?Medication ?Instructions ?Recorded ?Confirmed ?Type multivitamin (Daily Multi-Vitamin 1 tablet PO DAILY 02/06/21 10/30/24 History tablet) Cymbalta 60 mg capsule,delayed 60 mg PO DAILY #90 caps 04/25/24 10/30/24 Rx release (duloxetine) duloxetine 60 mg capsule,delayed 60 mg PO DAILY #90 caps 05/15/24 10/30/24 Rx release Patient hx anesthesia problems: none Family hx anesthesia problems: none Results Review: All pre-operative results and documents have been reviewed as part of the pre-operative evaluation. [facility] Past Medical History Medical History Acid reflux Anemia Anxiety Abnormal mammogram of right breast Surgical History Surgical History Status post right breast biopsy Family History Family History Sibling Breast cancer Father Hypertension Mother Hypertension Hypercholesterolemia Social History Social History Smoking status: Never smoker Alcohol intake: current Drinks per week: 7 Alcohol use details: 1 Glass of wine a night Substance use: never Substance use type: does not use Lack of Transportation: No Lack of Food: Never True Current Housing: I Have Housing Concerned About Future Housing: No Difficulty Paying Gas/Electric Bills: No Difficulty Paying for Meds: No Currently Unemployed: No Education: Bachelor's Degree Living arrangements: with family Additional living arrangements comments: with son Occupation/Education: occupation Gender identity (if verbalized by the patient): Female Sexual Orientation (if Verbalized by the Patient): Straight or Heterosexual Spiritual care concerns: No Anes - Eval Final PreProcedure Day of Procedure 10/30/24 10:54 Patient weight: normal Heart: regular rate and rhythm Lungs: clear to auscultation Airway: Mallampati scale class II Neurological: alert and oriented Last oral intake: >/= 8 hours ASA classification: II Emergent: no Anesthetic plan: proceed Anesthesia type and monitoring: general GIVS and standard monitoring Results Review: All pre-operative results and documents have been reviewed as part of the pre-operative evaluation. Informed Consent: The patient's anesthetic plan and its attendant risks and benefits were discussed with the patient/family/POA. Questions were solicited and answers provided to the satisfaction of the patient/family/POA.
[2024-10-30 11:09] VITALS: BP 103/56; PULSE 72; RESP 20; O2SAT 100
[2024-10-30 11:19] VITALS: BP 101/53; PULSE 68; RESP 18; O2SAT 100
[2024-10-30 11:29] VITALS: BP 110/64; PULSE 72; RESP 19; O2SAT 100
== END 2024-10-30 11:35 | disposition home or self-care (01) ==
PROVIDERS: PCP Nurse Practitioner Family; Visit Provider Internal Medicine Gastroenterology
PROC: 0DJD8ZZ Inspection of Lower Intestinal Tract, Via Natural or Artificial Opening Endoscopic (ICD-10-PCS; CPT 45378; principal; 2024-10-30 11:30)
DX: Z12.11 Encounter for screening for malignant neoplasm of colon (principal); K64.8 Other hemorrhoids; D64.9 Anemia, unspecified; F41.9 Anxiety disorder, unspecified; G21.9 Secondary parkinsonism, unspecified; Z98.890 Other specified postprocedural states; Z80.3 Family history of malignant neoplasm of breast
CPT/HCPCS: 45378; J2704; J7120